=== PATIENT | male | born 1995 | race Caucasian/White ===

== ENCOUNTER 2017-05-09 20:44 | Emergency (ER) | payer OTHER, SELFPAY ==
[2017-05-09 20:58] VITALS: BP 125/80; PULSE 86; RESP 20; TEMP 38.2; O2SAT 97; BMI 19.9
--- NOTE | 2017-05-09 21:00 | HMH.EDUTC ---
[facility] [place] Clinical Impression: Viral upper respiratory illness Disposition: Home, Self-Care Condition on Discharge: Good Instructions: DI for Viral Upper Respiratory Infection -- Adult Additional Instructions: * Monitor Temp. Tylenol and/or Ibuprofen as needed. ER if fever is no less than 101 despite alternating Tylenol and Ibuprofen * Encourage fluids, water, Gatorade, powerade, pedialyte if infant/toddler/or child * Warm salt water gargles for throat irritation *Warm fluids *Sore throat lozenges *Sleep elevated *humidifier or vaporizer Lots of rest Increase fluids, water, Gatorade, powerade *Flonase 2 sprays each nostril daily but may take 2-3 days to notice improvement with it *Bromfed may cause drowsiness. Know how it effect you or your child. Before driving, caring for small children or sending your child to school Follow up IMMEDIATELY for new or worsening of symptoms OR no noticeable improvement over the next 48-72 hours. 911 immediately for any life threatening symptoms such as chest pain or difficulty breathing Prescriptions: Dextromethorphan Polistirex [Delsym] 10 ml PO Q12H PRN #200 britt.[email or web address] PRN Reason: Cough Referrals: Aniceto lEena MD [Primary Care Provider] - Forms: Work/School Release Time of Disposition: 21:11 Medical Decision Making - Medical Records Medical records reviewed: Yes: I reviewed the patient's medical records. Vital Signs: 05/09/17 20:58 05/09/17 21:08 Temperature 100.8 F H Temperature Source Temporal Artery Scan Pulse Rate [Right Brachial] 86 Respiratory Rate 20 Blood Pressure [Right Arm] 125/80 Blood Pressure Mean [Right Arm] 95 Blood Pressure Source [Right Arm] Automatic Cuff Blood Pressure Position [Right Arm] Sitting 02 Sat by Pulse Oximetry 97 Oxygen Delivery Method Room Air Room Air - Jameel Inquiry Pt receiving controlled substance: No Jameel was queried for this patient: No [facility] [place] - General Stated complaint: cough,body pain Mode of Arrival: Family Vehicle Source of Information: Patient Limitations: No Limitations Description of Symptoms (Recalled from Triage Doc. by RN): BODY ACHES, COUGH, CHILLS. HEENT Symptoms (Recalled from RN notes): No Resp Symptoms (Recalled from RN notes): Yes (COUGH) Skin Symptoms (Recalled from RN notes): No MS Symptoms (Recalled from RN notes): No Functional Status (Recalled from RN notes): NA - History of Present Illness Provider Complaint: Patient state that he has recently been exposed to the flu State that he has been running a fever, stuffy nose, cough and congestion that has continued to get worse as the day went on State that he is having body aches and feels like he has a fever right now - Related Data Previous Rx's Medication Instructions Recorded Dextromethorphan Polistirex 10 ml PO Q12H PRN #200 britt.[email or web address] 05/09/17 [Delsym] Allergies Allergy/AdvReac Type Severity Reaction Status Date / Time brompheniramine Allergy Unknown Verified 05/09/17 21:00 [From DIMETAPP COLD-ALLERGY (PE)] phenylephrine Allergy Unknown Verified 05/09/17 21:00 [From DIMETAPP COLD-ALLERGY (PE)] - Worker's Comp Is this a Worker's Comp case?: No [facility] History I have reviewed the patient's past medical history: Yes Amputation: No Fractures: No - *Social History Smoking Status: Current every day smoker Tobacco Type: cigarettes Alcohol Intake: never - Psychiatric History Expresses thoughts of harming self/others: None Suicide Plan Description: No Plan ROS Obtained: Yes All systems reviewed & no additional complaints Physical Exam - General General appearance: alert, in no apparent distress - Expanded ENT Exam Comment: throat red, irritated no exudate - Respiratory Respiratory exam: Present: normal lung sounds bilaterally. Absent: respiratory distress - Cardiovascular Cardiovascular exam: Present: regular rate, normal rhythm. Absent: JVD - Back Exam Matthias
--- NOTE | 2017-05-09 21:08 | ED_ITS ---
[facility] – [place] Disposition Clinical Impression: Viral upper respiratory illness Disposition: Home, Self-Care Condition on Discharge: Good Instructions: DI for Viral Upper Respiratory Infection -- Adult Additional Instructions: * Monitor Temp. Tylenol and/or Ibuprofen as needed. ER if fever is no less than 101 despite alternating Tylenol and Ibuprofen * Encourage fluids, water, Gatorade, powerade, pedialyte if infant/toddler/or child * Warm salt water gargles for throat irritation *Warm fluids *Sore throat lozenges *Sleep elevated *humidifier or vaporizer Lots of rest Increase fluids, water, Gatorade, powerade *Flonase 2 sprays each nostril daily but may take 2-3 days to notice improvement with it *Bromfed may cause drowsiness. Know how it effect you or your child. Before driving, caring for small children or sending your child to school Follow up IMMEDIATELY for new or worsening of symptoms OR no noticeable improvement over the next 48-72 hours. 911 immediately for any life threatening symptoms such as chest pain or difficulty breathing Prescriptions: Dextromethorphan Polistirex [Delsym] 10 ml PO Q12H PRN #200 britt.er.12h PRN Reason: Cough Referrals: Aniceto Elena MD [Primary Care Provider] - Forms: Work/School Release Time of Disposition: 21:11 Medical Decision Making - Medical Records Medical records reviewed: Yes: I reviewed the patient's medical records. Vital Signs: 05/09/17 20:58 05/09/17 21:08 Temperature 100.8 F H Temperature Source Temporal Artery Scan Pulse Rate [Right Brachial] 86 Respiratory Rate 20 Blood Pressure [Right Arm] 125/80 Blood Pressure Mean [Right Arm] 95 Blood Pressure Source [Right Arm] Automatic Cuff Blood Pressure Position [Right Arm] Sitting 02 Sat by Pulse Oximetry 97 Oxygen Delivery Method Room Air Room Air - Jameel Inquiry Pt receiving controlled substance: No Jameel was queried for this patient: No [facility] [place] HPI - General Stated complaint: cough,body pain Mode of Arrival: Family Vehicle Source of Information: Patient Limitations: No Limitations Description of Symptoms (Recalled from Triage Doc. by RN): BODY ACHES, COUGH, CHILLS. HEENT Symptoms (Recalled from RN notes): No Resp Symptoms (Recalled from RN notes): Yes (COUGH) Skin Symptoms (Recalled from RN notes): No MS Symptoms (Recalled from RN notes): No Functional Status (Recalled from RN notes): NA - History of Present Illness Provider Complaint: Patient state that he has recently been exposed to the flu State that he has been running a fever, stuffy nose, cough and congestion that has continued to get worse as the day went on State that he is having body aches and feels like he has a fever right now - Related Data Previous Rx's Medication Instructions Recorded Dextromethorphan Polistirex 10 ml PO Q12H PRN #200 britt.er.12h 05/09/17 [Delsym] Allergies Allergy/AdvReac Type Severity Reaction Status Date / Time brompheniramine Allergy Unknown Verified 05/09/17 21:00 [From DIMETAPP COLD-ALLERGY (PE)] phenylephrine Allergy Unknown Verified 05/09/17 21:00 [From DIMETAPP COLD-ALLERGY (PE)] - Worker's Comp Is this a Worker's Comp case?: No [facility] History I have reviewed the patient's past medical history: Yes Amputation: No Fractures: No - *Social History Smoki
== END 2017-05-09 21:15 | disposition home or self-care (01) ==
PROVIDERS: Emergency Provider Nurse Practitioner; Family Provider Emergency Medicine; PCP Emergency Medicine
DX: J06.9 Acute upper respiratory infection, unspecified (principal); F17.210 Nicotine dependence, cigarettes, uncomplicated
CPT/HCPCS: 99201

== ENCOUNTER 2017-05-16 11:27 | Emergency (ER) | payer OTHER, SELFPAY ==
[2017-05-16 11:45] VITALS: BP 121/82; PULSE 58; RESP 20; TEMP 36.7; O2SAT 98; BMI 20.7
[2017-05-16 11:49] LABS: UTC Strep Screen (Rapid) Negative (Negative)
--- NOTE | 2017-05-16 12:14 | HMH.EDUTC ---
[facility] – [place] Disposition Clinical Impression: Dysfunction of left eustachian tube Pharyngitis Qualifiers: Pharyngitis/tonsillitis etiology: unspecified etiology Qualified Code(s): J02.9 - Acute pharyngitis, unspecified Disposition: Home, Self-Care Condition on Discharge: Good Instructions: DI for Viral Pharyngitis, DI for Eustachian Tube Dysfunction-Adult Additional Instructions: * No sign of bacterial infection. Likely viral. Virus can take 7-14 days to run their course so you should continue to keep getting better. * Monitor Temp. FU if fever develops * Encourage fluids, water, gatorade, powerade, pedialyte if infant/toddler/child * warm salt water gargles * warm fluids * sore throat lozenges * sleep elevated * humidifier/vaporizer * flonase 2 sprays each nostril daily but may take 2-3 days to notice improvement with it. * * Your throat swab was sent for culture. Those results are typically sent to your primary care. Be sure to follow up in 2-3 days if no improvement so they can review those results and treat if necessary. If you don't have primary care, I recommend you get one but in the mean time, you will have to return to a walk in clinic. Follow up IMMEDIATELY for new or worsening symptoms OR no noticeable improvement over the next 48-72 hours. 911 for difficulty breathing or swallowing. Referrals: Aniceto Elena MD [Primary Care Provider] - ( Follow up IMMEDIATELY for new or worsening symptoms OR no noticeable improvement over the next 48-72 hours. 911 for difficulty breathing or swallowing.) Time of Disposition: 12:23 Medical Decision Making Vital Signs: 05/16/17 11:45 Temperature 98.1 F Temperature Source Temporal Artery Scan Pulse Rate [Brachial] 58 L Respiratory Rate 20 Blood Pressure [Right Arm] 121/82 Blood Pressure Mean [Right Arm] 95 Blood Pressure Source [Right Arm] Automatic Cuff Blood Pressure Position [Right Arm] Sitting 02 Sat by Pulse Oximetry 98 Oxygen Delivery Method Room Air - Lab Data Lab results reviewed: Yes: I reviewed the patient's lab results. Lab Results 05/16/17 11:37: Strep Scn Rapid Clinic Negative Orders (Tests/Meds): ORDERS Category Date Time Status Strep Screen Confirmation Stat Micro 05/16/17 11:37 Received - Jameel Inquiry Pt receiving controlled substance: No [facility] [place] HPI - General Stated complaint: sore throat Time Seen by Provider: 05/16/17 12:00 Mode of Arrival: Ambulatory Source of Information: Patient Limitations: No Limitations Description of Symptoms (Recalled from Triage Doc. by RN): WANTS TO BE TESTED FOR STREP HEENT Symptoms (Recalled from RN notes): Yes Resp Symptoms (Recalled from RN notes): Yes Skin Symptoms (Recalled from RN notes): No MS Symptoms (Recalled from RN notes): No Functional Status (Recalled from RN notes): NA - History of Present Illness Provider Complaint: c/o brother just testing positive for strep, wants strep test. Flu like illness started one week ago. Was seen that evening in [facility]. Flu neg. Dx JOSIAH. Theraflu helping. Feels slowly improving but now that brother has strep, wants to rule out strep. - Related Data Previous Rx's Medication Instructions Recorded Dextromethorphan Polistirex 10 ml PO Q12H PRN #200 britt.er.12h 05/09/17 [Delsym] Allergies Allergy/AdvReac Type Severity Reaction Status Date / Time brompheniramine Allergy Unknown Verified 05/09/17 21:00 [From DIMETAPP COLD-ALLERGY (PE)] phenylephrine Allergy Unknown Verified 05/09/17 21:00 [From DIMETAPP COLD-ALLERGY (PE)] - Worker's Comp Is this a Worker's Comp case?: No [facility] History I have reviewed the patient's past medical history: Yes (denies PMHx) Other Surgeries: Yes: Appendectomy Amputation: No Fractures: No - *Social History Smoking Status: Current every day smoker Tobacco Type: cigarettes Alcohol Intake: never - Psychiatric History Expresses thoughts of harming self/others: None Rashmi
== END 2017-05-16 12:25 | disposition home or self-care (01) ==
PROVIDERS: Emergency Provider Nurse Practitioner Family; Family Provider Emergency Medicine; PCP Emergency Medicine
DX: H69.82 Other specified disorders of Eustachian tube, left ear (principal); J20.9 Acute bronchitis, unspecified
CPT/HCPCS: 87880; 99202

== ENCOUNTER → 2019-06-07 09:35 | Outpatient (CLI) | payer OTHER, SELFPAY ==
--- NOTE | 2019-06-07 09:50 | XR_ITS ---
PROCEDURE: XR CERVICAL SPINE 5V CLINICAL INDICATION: shoulder pain Right arm pain tingling and numbness, right-sided neck pain COMPARISON: No exams were available for comparison FINDINGS: There is good alignment. There is 2 mm anterolisthesis of C4 on C5 which may be physiologic. No fracture or dislocation. No lytic or blastic change. The foramina are widely patent. No evidence of cervical rib or other significant anomaly. IMPRESSION: Negative cervical spine Dictated by: Hosea Velazco MD 06/07/2019 12:57 Electronically signed by Hosea Velazco MD in [place] 06/07/2019 12:57
== END ==
PROVIDERS: PCP Emergency Medicine; Visit Provider Orthopaedic Surgery
DX: M25.511 Pain in right shoulder (principal)
CPT/HCPCS: 72050

== ENCOUNTER 2020-01-02 20:07 | Emergency (ER) | payer MEDICAID, SELFPAY ==
[2020-01-02 20:10] VITALS: BP 134/86; PULSE 75; RESP 16; TEMP 37.1; O2SAT 100; BMI 28.0
--- NOTE | 2020-01-02 20:30 | CT_ITS ---
PROCEDURE: CT HEAD/BRAIN WO CON CLINICAL INDICATION: weakness, dropping things, no focal findings Headache, dizziness COMPARISON: CT CT HEAD/BRAIN WO CON from 02/10/2019 TECHNIQUE: Axial images obtained. All CT scans at the facility use one or more dose reduction, viz: automated exposure control, ma/kV adjustment per patient size (including targeted exams where dose is matched to indication, i.e. head), or iterative reconstruction technique. FINDINGS: No midline shift, mass effect, intracranial hemorrhage, hydrocephalus, or extra-axial fluid collection is evident. The calvarium has an unremarkable appearance. No mastoid effusion. No sinus air-fluid level. IMPRESSION: No acute intracranial finding Dictated by: Hosea Velazco MD 01/03/2020 06:43 Hosea Velazco MD in [place] 01/03/2020 06:43
--- NOTE | 2020-01-02 20:34 | ECG_ITS ---
APPROVED REPORT Exam: Resting ECG HR:72 bpm ECG Measurements Heart Rate 72 AXES NV 134 P 38 QRSd 100 QRS 107 QT 366 T -30 QTc 400 <Conclusion> Normal sinus rhythm with sinus arrhythmia Rightward axis Cannot rule out Inferior infarct, age undetermined Abnormal ECG Electronically signed by : Erasmo Anderson, 01/06/2020 15:05:25
--- NOTE | 2020-01-02 20:35 | HMH.EDGENADL ---
ED Disposition Clinical Impression: Dizziness of unknown cause Disposition: Home, Self-Care Condition on Discharge: Fair Instructions: Dizziness, Nonvertigo Additional Instructions: Reviewed Labs and imaging and no acute findings are noted; specifically CT head shows no acute findings; vital signs are stable; plan is to discharge you home; Please follow-up with your primary care doctor. Referrals: Aniceto Elena MD [Primary Care Provider] - Forms: Work/School Release Time of Disposition: 22:13 - Critical Care Critical Care Time: No Attestation: On 01/02/20, the high probability of a clinically significant, sudden or life threatening deterioration of the following system(s) required my full and direct attention, intervention and personal management. The time I documented below is in addition to time spent performing reported procedures but includes the following listed in this critical care notation. Medical Decision Making - Medical Records Medical records reviewed: Yes: I reviewed the patient's medical records. MR Comment: 24 year old male with non specific complaints of feeling dizzy and dropping things. No focal complaints, awake alert in no specific distress, has had a negative Covid 19 test about a month ago. Reviewed Labs and imaging and no acute findings are noted; specifically CT head shows no acute findings; vital signs are stable patient is himself in stable condition normal findings; plan is to discharge him home and advised him follow-up with his primary care doctor which is Dr. Elena will keep him off work for the next few days advised him to follow-up in case of recurrence of symptoms - Jameel Inquiry Pt receiving controlled substance: No Vital Signs: 01/02/20 20:10 01/02/20 21:21 01/02/20 21:47 Temperature 98.7 F Temperature Source Oral Pulse Rate [Right Radial] 75 63 60 Respiratory Rate 16 18 18 Blood Pressure [Right Arm] 134/86 134/74 120/72 Blood Pressure Mean [Right Arm] 102 94 88 Blood Pressure Source [Right Arm] Automatic Cuff Blood Pressure Position [Right Arm] Supine 02 Sat by Pulse Oximetry 100 98 99 Oxygen Delivery Method Room Air Room Air - Lab Data Lab results reviewed: Yes: I reviewed the patient's lab results. Lab Results 01/02/20 20:46: TSH 3.66 01/02/20 20:46: WBC 8.3, RBC 5.46, Hgb 17.3, Hct 47.9, MCV 87.7, MCH 31.7 H, MCHC 36.1 H, RDW 12.3, Plt Count 324, MPV 7.2 L, Neut % (Auto) 64.0, Lymph % (Auto) 27.3, [place] % (Auto) 6.3, Eos % (Auto) 1.7, Baso % (Auto) 0.8, Neut # (Auto) 5.3, Lymph # (Auto) 2.3, [place] # (Auto) 0.5, Eos # (Auto) 0.1, Baso # (Auto) 0.1 01/02/20 20:46: Sodium 141, Potassium 4.2, Chloride 99, Carbon Dioxide 31 H, Anion Gap 15.2 H, BUN 13, Creatinine 1.00, Estimated Creat Clear 139, Estimated GFR 92, Est GFR ( Amer) 111, Glucose 109 H, Calcium 10.4 H, Total Bilirubin 0.5, AST 33, ALT 36, Alkaline Phosphatase 89, Troponin I < 0.01, Total Protein 8.4 H, Albumin 5.0, Globulin 3.4 H, Albumin/Globulin Ratio 1.5 Result diagrams: 01/02/20 20:46 01/02/20 20:46 Orders (Tests/Meds): ORDERS Category Date Time Status CT head/brain wo con Stat Cat Scan 01/02/20 20:30 Taken Drug Screen,Urine Stat Lab 01/02/20 20:33 Ordered Troponin I Q3H Lab 01/02/20 23:45 Ordered Troponin I Q3H Lab 01/03/20 02:45 Ordered Urinalysis and Microscopic Stat Lab 01/02/20 20:30 Ordered EKG Request [ECG Request by /Aj] Stat Y 01/02/20 20:34 Ordered General Adult HPI - General Chief complaint: Dizziness Stated complaint: SOB,Vomiting,CP,dizzy Time Seen by Provider: 01/02/20 20:28 Mode of Arrival: Ambulatory Source of Information: Patient Limitations: No Limitations - History of Present Illness HPI narrative: 24 year old male with non specific complaints of feeling dizzy and dropping things. No focal complaints, awake alert in no specific distress. Onset (ago): day(s) Location: head Radiation: non-radiation Severity: mil
[2020-01-02 20:53] LABS: Basophils # 0.1 K/mm3 (0-0.2); Basophils % 0.8 % (0.1-2.0); Eosinophils # 0.1 K/mm3 (0.0-0.4); Eosinophils % 1.7 % (0.1-12.0); Hematocrit 47.9 % (42.0-52.0); Hemoglobin 17.3 g/dL (14.1-18.0); Lymphocytes # 2.3 K/mm3 (0.7-4.5); Lymphocytes % 27.3 % (10-50); Mean Corpuscular HGB Conc 36.1 g/dL (31.8-35.4); Mean Corpuscular Hemoglobin 31.7 pg (27.0-31.2); Mean Corpuscular Volume 87.7 fl (80-94); Mean Platelet Volume 7.2 fl (7.4-10.4); Monocytes # 0.5 K/mm3 (0.1-1.0); Monocytes % 6.3 % (1.7-9.3); Neutrophils # 5.3 K/mm3 (1.8-7.8); Platelet Count 324 K/mm3 (142-424); Red Blood Count 5.46 M/mm3 (4.60-6.20); Red Cell Distribution Width 12.3 % (11.5-17.5); White Blood Count 8.3 K/mm3 (4.8-10.8)
[2020-01-02 21:01] LABS: Chloride 99 mmol/L (98-107); Potassium 4.2 mmoL/L (3.5-5.1); Sodium 141 mmol/L (136-145)
[2020-01-02 21:03] LABS: Blood Urea Nitrogen 13 mg/dl (9-20); Creatinine Clearance Estimated 139 mL/min (50-200); Estimated Glomerular Filt Rate 92 ml/min (>60); GFR (African American) 111 ML/MIN (>60)
[2020-01-02 21:04] LABS: Alanine Aminotransferase 36 U/L (12-78); Albumin/Globulin Ratio 1.5 (1.1-1.8); Alkaline Phosphatase 89 U/L (38-126); Anion Gap 15.2 mEq/L (5-15); Aspartate Amino Transferase 33 U/L (17-59); Bilirubin,Total 0.5 mg/dl (0.2-1.3); Calcium 10.4 mg/dl (8.4-10.2); Carbon Dioxide 31 mmol/L (22.0-30.0); Globulin 3.4 g/dL (1.3-3.2); Glucose 109 mg/dl (74-100); Total Protein,Serum 8.4 g/dl (6.3-8.2)
[2020-01-02 21:19] LABS: Troponin I < 0.01 ng/ml (0.00-0.034)
[2020-01-02 21:21] VITALS: BP 134/74; PULSE 63; RESP 18; O2SAT 98
[2020-01-02 21:35] LABS: Thyroid Stimulating Hormone 3.66 uIU/mL (0.465-4.68)
[2020-01-02 21:47] VITALS: BP 120/72; PULSE 60; RESP 18; O2SAT 99
[2020-01-02 22:09] VITALS: BP 132/81; PULSE 61; RESP 18; O2SAT 98
[2020-01-02 22:18] LABS: Microscopic, Urine URINE MICROSCOPIC (MICROSCOPIC)
[2020-01-02 22:24] LABS: Appearance,Urine CLEAR (Clear); Bilirubin,Urine Negative (Negative); Blood, Urine Negative (Negative); Color,Urine YELLOW (Yellow); Glucose,Urine (UA) Negative (Negative); Ketones,Urine Negative (Negative); Leukocyte Esterase,Urine Negative (Negative); Nitrate,Urine Negative (Negative); PH,Urine 6.5 (5.0-8.5); Protein,Urine Negative (Negative); Specific Gravity, Urine 1.025 (1.005-1.030)
[2020-01-02 22:29] LABS: Bacteria,Urine Trace /lpf; Mucus,Urine 1+ /lpf; WBC,Urine Occasional #/hpf (0-3)
[2020-01-02 22:37] LABS: Barbiturates Screen,Urine Negative ng/ml (<200); Benzodiazepines Screen,Urine Negative ng/ml (<200)
[2020-01-02 22:38] LABS: Amphetamine/Metha Screen,Urine Negative ng/ml (<1000)
[2020-01-02 22:39] LABS: Cannabinoid Screen,Urine Negative ng/ml (<50); Methadone Screen,Urine Negative ng/ml (<300)
[2020-01-02 22:40] LABS: Cocaine Screen,Urine Negative ng/ml (<300)
[2020-01-02 22:41] LABS: Opiate Screen,Urine Negative ng/ml (<300); Phencyclidine Screen,Urine Negative ng/ml (<25)
[2020-01-02 22:53] VITALS: BP 132/89; PULSE 65; RESP 18; TEMP 37.1; O2SAT 98
== END 2020-01-02 22:58 | disposition home or self-care (01) ==
PROVIDERS: Emergency Provider Emergency Medicine; PCP Emergency Medicine
DX: R42 Dizziness and giddiness (principal); R06.02 Shortness of breath; G43.709 Chronic migraine without aura, not intractable, without status migrainosus; F17.210 Nicotine dependence, cigarettes, uncomplicated
CPT/HCPCS: 70450; 80053; 80305; 81001; 84443; 84484; 85025; 99284

== ENCOUNTER 2020-04-17 04:06 | Emergency (ER) | payer BC, SELFPAY ==
[2020-04-17 04:10] VITALS: BP 141/92; PULSE 97; RESP 16; TEMP 37; O2SAT 97; BMI 29.5
--- NOTE | 2020-04-17 04:25 | XR_ITS ---
PROCEDURE: XR CHEST 2V CLINICAL HISTORY: soa Shortness of air, cough COMPARISON: CR CXR CHEST(2 VIEWS-NOT PORTABLE) from 05/09/[address] angio chest from 05/17/2018 CR CXR2V XR chest 2V from 05/17/2018 FINDINGS: The cardiomediastinal silhouette and pulmonary vascularity are within normal limits. The lungs are clear without infiltrates, suspicious nodules, or pleural effusions. No acute bony abnormalities. IMPRESSION: No acute findings. Dictated by: Hosea Velazco MD 04/17/2020 07:11 Hosea Velazco MD in [place] 04/17/2020 07:11
[2020-04-17 04:55] LABS: Basophils % 0.6 % (0.1-2.0); Eosinophils # 0.1 K/mm3 (0.0-0.4); Eosinophils % 1.3 % (0.1-12.0); Hematocrit 46.7 % (42.0-52.0); Hemoglobin 16.8 g/dL (14.1-18.0); Lymphocytes # 2.2 K/mm3 (0.7-4.5); Lymphocytes % 40.2 % (10-50); Mean Corpuscular HGB Conc 36.1 g/dL (31.8-35.4); Mean Corpuscular Hemoglobin 31.7 pg (27.0-31.2); Mean Corpuscular Volume 87.8 fl (80-94); Mean Platelet Volume 7.6 fl (7.4-10.4); Monocytes # 0.5 K/mm3 (0.1-1.0); Neutrophils # 2.7 K/mm3 (1.8-7.8); Neutrophils % 48.8 % (37.0-80.0); Platelet Count 247 K/mm3 (142-424); Red Blood Count 5.31 M/mm3 (4.60-6.20); Red Cell Distribution Width 12.6 % (11.5-17.5); White Blood Count 5.5 K/mm3 (4.8-10.8)
[2020-04-17 04:57] LABS: Alanine Aminotransferase 101 U/L (12-78); Albumin Level 4.8 g/dl (3.5-5.0); Albumin/Globulin Ratio 1.4 (1.1-1.8); Alkaline Phosphatase 84 U/L (38-126); Anion Gap 13.5 mEq/L (5-15); Aspartate Amino Transferase 48 U/L (17-59); Bilirubin,Total 0.7 mg/dl (0.2-1.3); Blood Urea Nitrogen 12 mg/dl (9-20); Calcium 9.7 mg/dl (8.4-10.2); Carbon Dioxide 30 mmol/L (22.0-30.0); Chloride 97 mmol/L (98-107); Creatinine Clearance Estimated 146 mL/min (50-200); Estimated Glomerular Filt Rate 92 ml/min (>60); GFR (African American) 111 ML/MIN (>60); Globulin 3.5 g/dL (1.3-3.2); Glucose 107 mg/dl (74-100); Potassium 3.5 mmoL/L (3.5-5.1); Sodium 137 mmol/L (136-145); Total Protein,Serum 8.3 g/dl (6.3-8.2)
[2020-04-17 05:00] VITALS: BP 127/71; PULSE 82; O2SAT 98
[2020-04-17 05:02] LABS: C-Reactive Protein 1.1 mg/L (0-4)
[2020-04-17 05:16] LABS: Procalcitonin 0.053 ng/mL (0.0-2.0)
[2020-04-17 05:30] VITALS: BP 114/68; PULSE 75; O2SAT 98
[2020-04-17 06:00] LABS: Coronavirus 19 IgG Antibody Negative (Negative); Coronavirus 19 IgM Antibody Negative (Negative)
[2020-04-17 06:01] LABS: Erythrocyte Sedimentation Rate 14 mm/hr (0-15)
--- NOTE | 2020-04-17 06:09 | HMH.EDSOB ---
ED Disposition Clinical Impression: Viral upper respiratory illness, Exposure to COVID-19 virus Disposition: Home, Self-Care Condition on Discharge: Good Instructions: DI for Shortness of Breath Additional Instructions: quarantine till results and use vitamins c and and zinc and recheck if needed Referrals: Aniceto Elena MD [Primary Care Provider] - - Critical Care Critical Care Time: No Attestation: On 04/17/20, the high probability of a clinically significant, sudden or life threatening deterioration of the following system(s) required my full and direct attention, intervention and personal management. The time I documented below is in addition to time spent performing reported procedures but includes the following listed in this critical care notation. Medical Decision Making - Medical Records Medical records reviewed: Yes: I reviewed the patient's medical records. - Jameel Inquiry Pt receiving controlled substance: No Vital Signs: 04/17/20 04:10 04/17/20 05:00 04/17/20 05:30 Temperature 98.6 F Temperature Source Oral Pulse Rate [Right Brachial] 97 H 82 75 Respiratory Rate 16 Blood Pressure [Right Arm] 141/92 H 127/71 114/68 Blood Pressure Mean [Right Arm] 108 89 83 Blood Pressure Source [Right Arm] Automatic Cuff Automatic Cuff Blood Pressure Position [Right Arm] Supine Supine 02 Sat by Pulse Oximetry 97 98 98 Oxygen Delivery Method Room Air Room Air - Lab Data Lab results reviewed: Yes: I reviewed the patient's lab results. Lab Results 04/17/20 04:36: WBC 5.5, RBC 5.31, Hgb 16.8, Hct 46.7, MCV 87.8, MCH 31.7 H, MCHC 36.1 H, RDW 12.6, Plt Count 247, MPV 7.6, Neut % (Auto) 48.8, Lymph % (Auto) 40.2, [place] % (Auto) 9.0, Eos % (Auto) 1.3, Baso % (Auto) 0.6, Neut # (Auto) 2.7, Lymph # (Auto) 2.2, [place] # (Auto) 0.5, Eos # (Auto) 0.1, Baso # (Auto) 0.0, ESR 14 04/17/20 04:36: Sodium 137, Potassium 3.5, Chloride 97 L, Carbon Dioxide 30, Anion Gap 13.5, BUN 12, Creatinine 1.00, Estimated Creat Clear 146, Estimated GFR 92, Est GFR ( Amer) 111, Glucose 107 H, Calcium 9.7, Total Bilirubin 0.7, AST 48, ALT 101 H, Alkaline Phosphatase 84, C-Reactive Protein 1.1, Total Protein 8.3 H, Albumin 4.8, Globulin 3.5 H, Albumin/Globulin Ratio 1.4, Procalcitonin 0.053 04/17/20 04:36: Influenza Type A Ag Negative, Influenza Type B Ag Negative 04/17/20 04:36: SARS-CoV-2 IgG Ab (Rapid) Negative, SARS-CoV-2 IgM Ab (Rapid) Negative Result diagrams: 04/17/20 04:36 04/17/20 04:36 Orders (Tests/Meds): ED MEDICATIONS Generic Name Dose Route Start Last Admin Trade Name Freq PRN Reason Stop Dose Admin Sodium Chloride 1,000 mls @ 999 mls/hr 04/17/20 04:30 04/17/20 04:33 Sod Chlor 0.9% 1000ml Bag IV 04/17/20 05:30 999 mls/hr .Q1H1M BESS Administration Discontinued Medications Generic Name Dose Route Start Last Admin Trade Name Freq PRN Reason Stop Dose Admin Dexamethasone Sodium Phosphate 10 mg 04/17/20 04:29 04/17/20 04:33 Dexamethasone 4mg/Ml 1ml Vial IV 04/17/20 04:30 10 mg ONCE ONE Administration ORDERS Category Date Time Status Chest XR 2 view (NOT portable) [XR chest 2V] Stat Exams 04/17/20 04:25 Taken Covid-19 Nasal PCR Sendout P&C Stat Lab 04/17/20 04:36 Received - Radiology Data #1 Image(s): Chest Image Reviewed: Yes I reviewed the patient's radiology image Preliminary Findings: Normal/NAD (nonspecific ) Resp/SOB HPI - General Chief Complaint: Shortness of Breath/Dyspnea Stated Complaint: Dizziness,cough,SOB,lost of taste & smell Time Seen by Provider: 04/17/20 05:00 Mode of Arrival: Ambulatory Source of Information: Patient, Medical Record Limitations: No Limitations Description of Symptoms (Recalled from ER Triage Doc. by RN): pt c/o of SOA, loss of taste, smell, fever, weakness, body aches starting on tuesday and not getting any better. - History of Present Illness work place exposure with uri sx and loss of smell - has been te
[2020-04-17 06:29] VITALS: BP 121/72; PULSE 71; RESP 16; TEMP 36.9; O2SAT 98
--- NOTE | 2020-04-19 12:35 | PC.NURSE ---
Patient notified of positive COVID results. Educated on quarantine.
== END 2020-04-17 06:31 | disposition home or self-care (01) ==
PROVIDERS: Emergency Provider Emergency Medicine; PCP Emergency Medicine
DX: U07.1 COVID-19 (principal); Z01.84 Encounter for antibody response examination; G43.909 Migraine, unspecified, not intractable, without status migrainosus
CPT/HCPCS: 71046; 80053; 84145; 85025; 85651; 86140; 86328; 87275; 87276; 96365; 96375; 99283; U0003; U0004

== ENCOUNTER 2020-07-15 20:36 | Emergency (ER) | payer BC, SELFPAY ==
[2020-07-15 20:47] VITALS: BP 145/91; PULSE 91; RESP 100; TEMP 36.6; O2SAT 99; BMI 29.9
--- NOTE | 2020-07-15 20:55 | HMH.EDUTC ---
[facility] [place] Disposition Clinical Impression: Sinusitis Qualifiers: Sinusitis location: unspecified location Chronicity: acute Recurrence: non-recurrent Qualified Code(s): J01.90 - Acute sinusitis, unspecified Disposition: Home, Self-Care Condition on Discharge: Good Instructions: DI for Sinusitis Additional Instructions: Drink plenty of fluids. Take tylenol or ibuprofen for pain or fever. Take the medications as directed. Follow up with your regular doctor. GO TO THE ER FOR ANY WORSENING SYMPTOMS Prescriptions: Ondansetron [Zofran 4mg ODT] 4 mg PO Q8HP PRN #12 tab.rapdis PRN Reason: Nausea Transmission Status: Received by [id number] Azithromycin [Z-Blayne 250mg Tab*] 250 mg PO UD DOSE PK #6 tab Transmission Status: Received by [id number] Referrals: Aniceto Elena MD [Primary Care Provider] - Forms: Work/School Release Time of Disposition: 20:57 Medical Decision Making - Medical Records Medical records reviewed: No: I reviewed the patient's medical records. - Jameel Inquiry Pt receiving controlled substance: No Vital Signs: 07/15/20 20:47 07/15/20 21:11 Temperature 98 F 98 F Temperature Source Tympanic Pulse Rate 0 L Pulse Rate [Right] 91 H Respiratory Rate 100 H 16 Blood Pressure 000/00 L Blood Pressure [Right Arm] 145/91 H Blood Pressure Mean [Right Arm] 109 Blood Pressure Source [Right Arm] Automatic Cuff Blood Pressure Position [Right Arm] Sitting 02 Sat by Pulse Oximetry 99 Orders (Tests/Meds): ED MEDICATIONS Discontinued Medications Generic Name Dose Route Start Last Admin Trade Name Freq PRN Reason Stop Dose Admin Ondansetron HCl 4 mg 07/15/20 20:55 07/15/20 20:55 Ondansetron 4mg Odt SL 07/15/20 20:56 4 mg ONCE ONE Administration [facility] [place] HPI - General Stated complaint: not feeling good, vomiting Time Seen by Provider: 07/15/20 20:55 Mode of Arrival: Ambulatory Source of Information: Patient Limitations: No Limitations Description of Symptoms (Recalled from Triage Doc. by RN): pt complains of vomitting twice today. no other symptoms. states he needs a work note. HEENT Symptoms (Recalled from RN notes): No Resp Symptoms (Recalled from RN notes): No Skin Symptoms (Recalled from RN notes): No MS Symptoms (Recalled from RN notes): No Functional Status (Recalled from RN notes): na - History of Present Illness Provider Complaint: He states that he has had sinus congestion for the past 3 days. He states that the drainage has caused him to be nauseated. He vomited x1 earlier this evening. He denies any abdominal pain. He doesn't think that he has covid-19 and he states that he doesn't need to be tested. - Related Data Previous Rx's Medication Instructions Recorded Azithromycin [Z-Blayne 250mg Tab*] 250 mg PO UD DOSE PK #6 tab 07/15/20 Ondansetron [Zofran 4mg ODT] 4 mg PO Q8HP PRN #12 tab.rapdis 07/15/20 Allergies Allergy/AdvReac Type Severity Reaction Status Date / Time brompheniramine Allergy Unknown Verified 07/15/20 20:52 [From DIMETAPP COLD-ALLERGY (PE)] phenylephrine Allergy Unknown Verified 07/15/20 20:52 [From DIMETAPP COLD-ALLERGY (PE)] - Worker's Comp Is this a Worker's Comp case?: No [facility] History - Hepatitis A Screen Drug use history?: No High risk sexual behaviors?: No History of sexually transmitted infection?: No Currently employed?: No Childcare worker?: No Do you have indoor plumbing?: Yes Do you have electricity?: Yes Attestation statement:: This patient has been screened for Hepatitis A risk factors. I have reviewed the patient's past medical history: Yes Medical History: Reports:: Depression, Migraine Denies:: Cancer, Diabetes Mellitus Type 1, Diabetes Mellitus Type 2, MRSA Other Surgeries: Yes: Appendectomy Amputation: No Fractures: No - Social History Smoking Status: Current every day smoker Tobacco Type: cigarettes # Packs/Day (cigarettes): 1 A
[2020-07-15 21:11] VITALS: BP 000/00; PULSE 0; RESP 16; TEMP 36.6
== END 2020-07-15 21:11 | disposition home or self-care (01) ==
PROVIDERS: Emergency Provider Nurse Practitioner Family; PCP Emergency Medicine
DX: J01.90 Acute sinusitis, unspecified (principal); F17.210 Nicotine dependence, cigarettes, uncomplicated
CPT/HCPCS: 99202; G0463

== ENCOUNTER 2020-09-10 16:37 | Emergency (ER) | payer BC, SELFPAY ==
[2020-09-10 17:10] VITALS: BP 130/80; PULSE 72; RESP 16; TEMP 36.8; O2SAT 98; BMI 25.8
[2020-09-10 17:18] LABS: Apearance,Urine Clear (Clear); Color,Urine Yellow (Yellow)
[2020-09-10 17:19] LABS: Bilirubin,Urine Negative (Negative); Blood, Urine Negative (Negative); Glucose,Urine (UA) Negative (Negative); Ketones,Urine Negative (Negative); PH,Urine 5.5 (5.0-8.5); Protein,Urine Negative (Negative); Specific Gravity, Urine 1.025 (1.005-1.030); UTC Leukocyte Esterase,Urine Negative (Negative); UTC Nitrate,Urine Negative (Negative); Urobilinogen,Urine 0.2 EU/dl (0.2)
--- NOTE | 2020-09-10 17:38 | HMH.EDUTC ---
[facility] [place] Clinical Impression: Low back pain Qualifiers: Chronicity: unspecified Back pain laterality: right Sciatica presence: without sciatica Qualified Code(s): M54.5 - Low back pain Disposition: Home, Self-Care Condition on Discharge: Good Instructions: Low Back Pain (Alternative Therapy), Hemorrhoids, DI for Muscle Spasm Additional Instructions: Make sure that you are drinking plenty of water and getting adequate fiber in your diet *If you have anymore blood on the tissue make sure to follow up with your Family Doctor Return if needed Straight to ER if any life threatening symptoms *Ibuprofen carmella 6 hours with meal as needed for pain/inflammation *Not additional anti-inflammatory like motrin, aleve, advil with the above amount of ibuprofen. You can still take Tylenol every 4 hours as needed if you need something else for pain *Ice 20 minutes every 2 hours for the first 48 hours after the initial injury followed by moist heat every 20 minutes 3-4 times a day to affected area *Muscle relaxer every 8 hours as needed for muscle spasms but remember, it WILL cause drowsiness You cannot take it and drive, operate machinery or care for small children. *Keep this area active, no movement leads to more stiffness, However take it easy and avoid heavy lifting pushing or pulling *Follow up with you family doctor if no improvement for further treatment Prescriptions: methocarbamoL [Methocarbamol 500mg Tablet] 500 mg PO BID PRN #10 tab PRN Reason: Muscle Spasm Transmission Status: Received by [id number] Naproxen [Naproxen 500mg tab] 500 mg PO BID PRN #10 tab PRN Reason: Moderate Pain Transmission Status: Received by [id number] Referrals: Aniceto Elena MD [Primary Care Provider] - As needed Forms: Work/School Release Time of Disposition: 17:48 Medical Decision Making - Jameel Inquiry Pt receiving controlled substance: No Jameel was queried for this patient: No Vital Signs: 09/10/20 17:10 09/10/20 17:51 Temperature 98.2 F 98.2 F Temperature Source Oral Pulse Rate 72 Pulse Rate [Right Brachial] 72 Respiratory Rate 16 16 Blood Pressure 130/80 Blood Pressure [Right Arm] 130/80 Blood Pressure Mean [Right Arm] 96 Blood Pressure Source [Right Arm] Automatic Cuff Blood Pressure Position [Right Arm] Sitting 02 Sat by Pulse Oximetry 98 Oxygen Delivery Method Room Air - Lab Data Lab Results 09/10/20 17:04: Urine Color Yellow, Urine Appearance Clear, Urine pH 5.5, Ur Specific [place] 1.025, Urine Protein Negative, Urine Glucose (UA) Negative, Urine Ketones Negative, Urine Blood Negative, Urine Nitrate Negative, Urine Bilirubin Negative, Urine Urobilinogen 0.2, Ur Leukocyte Esterase Negative Medical Decision Narrative: Patient external rectal area examined no external hemorrhoids noted Patient refused digital exam and guiac test States that he would see his PCP for that if he had it again Discussed and recommended transfer to the ED for further evaluation and patient declined that also [facility] [place] - General Stated complaint: pain in kidney area and blood in stool Time Seen by Provider: 09/10/20 17:38 Mode of Arrival: Ambulatory Source of Information: Patient Limitations: No Limitations Description of Symptoms (Recalled from Triage Doc. by RN): PATIENT C/O PAIN TO RIGHT LOWER SIDE/BACK X 2 DAYS. ALSO STATES AFTER STRAINING TO HAVE BM, HE HAD A SMALL AMOUNT OF BRIGHT RED BLOOD ON TISSUE. HEENT Symptoms (Recalled from RN notes): No Resp Symptoms (Recalled from RN notes): No Skin Symptoms (Recalled from RN notes): No MS Symptoms (Recalled from RN notes): No Functional Status (Recalled from RN notes): WNL - History of Present Illness Provider Complaint: Patient states that he has been having achy like feeling in his his right low back area State that feels like he may have pulled something in the right side of his lower back States that it is tender to the touch and feels like he
[2020-09-10 17:51] VITALS: BP 130/80; PULSE 72; RESP 16; TEMP 36.8; O2SAT 98
== END 2020-09-10 18:00 | disposition home or self-care (01) ==
PROVIDERS: Emergency Provider Nurse Practitioner; PCP Emergency Medicine
DX: M54.5 Low back pain (principal); K92.1 Melena; F33.1 Major depressive disorder, recurrent, moderate; Z79.899 Other long term (current) drug therapy
CPT/HCPCS: 81003; 99202; G0463

== ENCOUNTER 2021-10-09 22:33 | Emergency (ER) | payer SELFPAY ==
[2021-10-09 22:35] VITALS: BP 149/94; PULSE 81; RESP 16; TEMP 36.9; O2SAT 99; BMI 28.3
--- NOTE | 2021-10-09 23:05 | CT_ITS ---
PROCEDURE INFORMATION: Exam: CT Cervical Spine Without Contrast Exam date and time: 10/09/2021 11:21 PM Age: 26 years old Clinical indication: Injury or trauma; Other: Was loading a vehicle onto a trailer and heard neck pop; Sprain or strain, cervical ligaments TECHNIQUE: Imaging protocol: Computed tomography of the cervical spine without contrast. Radiation optimization: All CT scans at this facility use at least one of these dose optimization techniques: automated exposure control; mA and/or kV adjustment per patient size (includes targeted exams where dose is matched to clinical indication); or iterative reconstruction. COMPARISON: CR XR CERVICAL SPINE 5V 06/07/2019 9:57 AM FINDINGS: Bones/joints: No acute fracture. Normal alignment. Discs/Spinal canal/Neural foramina: No significant disc protrusion. No severe spinal canal stenosis. No significant neural foraminal narrowing. Lungs: Lung apices are normal. Soft tissues: Unremarkable. IMPRESSION: No acute findings.
--- NOTE | 2021-10-09 23:05 | CT_ITS ---
PROCEDURE INFORMATION: Exam: CT Thoracic Spine Without Contrast Exam date and time: 10/09/2021 11:24 PM Age: 26 years old Clinical indication: Injury or trauma; Other: Loading a vehicle onto a trailer and heard neck and upper back pop; Sprain or strain TECHNIQUE: Imaging protocol: Computed tomography of the thoracic spine without contrast. Radiation optimization: All CT scans at this facility use at least one of these dose optimization techniques: automated exposure control; mA and/or kV adjustment per patient size (includes targeted exams where dose is matched to clinical indication); or iterative reconstruction. COMPARISON: CT CERVICAL SPINE WO CON 10/09/2021 11:21 PM FINDINGS: Bones/joints: No acute fracture. Normal alignment. Discs/Spinal canal/Neural foramina: No significant disc protrusion. No severe spinal canal stenosis. No significant neural foraminal narrowing. Soft tissues: Unremarkable. IMPRESSION: Unremarkable CT Spine.
--- NOTE | 2021-10-09 23:23 | PC.NURSE ---
Pt gone to RAD
--- NOTE | 2021-10-09 23:24 | PC.NURSE ---
pt to ct
--- NOTE | 2021-10-09 23:25 | HMH.EDNECK ---
ED Disposition Clinical Impression: Acute cervical myofascial strain Qualifiers: Encounter type: initial encounter Qualified Code(s): S16.1XXA - Strain of muscle, fascia and tendon at neck level, initial encounter Disposition: Home, Self-Care Condition on Discharge: Good Instructions: DI for Neck Pain Additional Instructions: alternate heat and ice x 24 hrs and use meds and see pcp next week as needed Prescriptions: predniSONE [Prednisone 20mg Tab] 20 mg PO BID #10 tab Transmission Status: Pending to [facility] Ketorolac Tromethamine [Toradol 10mg tablet] 10 mg PO Q6HP PRN #12 tab MDD 40mg/day PRN Reason: Moderate To Severe Pain Transmission Status: Pending to [facility] Referrals: Aniceto Elena MD [Primary Care Provider] - - Critical Care Critical Care Time: No Attestation: On 10/09/21, the high probability of a clinically significant, sudden or life threatening deterioration of the following system(s) required my full and direct attention, intervention and personal management. The time I documented below is in addition to time spent performing reported procedures but includes the following listed in this critical care notation. Medical Decision Making - Medical Records Medical records reviewed: Yes: I reviewed the patient's medical records. - Jameel Inquiry Pt receiving controlled substance: No Vital Signs: 10/09/21 22:35 Temperature 98.5 F Temperature Source Oral Pulse Rate [Left] 81 Respiratory Rate 16 Blood Pressure [Right Arm] 149/94 H Blood Pressure Mean [Right Arm] 112 02 Sat by Pulse Oximetry 99 Oxygen Delivery Method Room Air - Lab Data Lab results reviewed: Yes: I reviewed the patient's lab results. - CT Data CT Scan: C-Spine, T-Spine Time Received: 00:[address] Reviewed: Yes: I have viewed the radiologist's interpretation Preliminary Findings: No Fracture Seen Medical Decision Narrative: has acute m/s injury with stable neuro exam and xrays Neck Pain/Injury HPI - General Chief Complaint: Neck Pain/Injury Stated Complaint: AO 10/09@2000pain left jossie of neck and shoulder Time Seen by Provider: 10/09/21 23:25 Mode of Arrival: Ambulatory Source of Information: Patient, Medical Record Limitations: No Limitations Description of Symptoms (Recalled from ER Triage Doc. by RN): pt stated while hooking a car tonight he had bilateral pops in his neck states the pain i s11/10 states the pain is on the left side of the neck feels like torn ligaments. the pt was placen a in a c-collar at 2244 upon arrival in the room has had tylenol nothing else. PER PT no narcotics - History of Present Illness HPI Narrative: acute neck pain with jerking as he was working on car MD complaint: neck injury Onset (ago): hour(s) Place: home Radiation: left lateral Severity: moderate Associated symptoms: none Treatments prior to arrival: none - Related Data Previous Rx's Medication Instructions Recorded azithromycin 250 mg tablet See Rx Instructions PO .COMPLEX #6 10/02/21 tab methylprednisolone 4 mg tablets in 4 mg PO DAILY #21 tab 10/02/21 a dose pack Ketorolac Tromethamine [Toradol 10 mg PO Q6HP PRN #12 tab MDD 10/10/21 10mg tablet] 40mg/day predniSONE [Prednisone 20mg 20 mg PO BID #10 tab 10/10/21 Tab] Allergies Allergy/AdvReac Type Severity Reaction Status Date / Time brompheniramine Allergy Unknown Verified 09/18/20 16:09 [From DIMETAPP COLD-ALLERGY (PE)] phenylephrine Allergy Unknown Verified 09/18/20 16:09 [From DIMETAPP COLD-ALLERGY (PE)] [facility] History - Hepatitis A Screen Attestation statement:: This patient has been screened for Hepatitis A risk factors. I have reviewed the patient's past medical history: Yes Medical History: Reports:: Asthma, Depression, Migraine Denies:: Cancer, Diabetes Mellitus Type 1, Diabetes Mellitus Type 2, MRSA Other Surgeries: Yes: Appendectomy Amputation: No Fr
--- NOTE | 2021-10-09 23:32 | PC.NURSE ---
Pt back from RAD
[2021-10-10 01:11] VITALS: BP 144/83; PULSE 83; RESP 18; TEMP 36.7; O2SAT 98
== END 2021-10-10 01:12 | disposition home or self-care (01) ==
PROVIDERS: Emergency Provider Emergency Medicine; PCP Emergency Medicine
DX: S16.1XXA Strain of muscle, fascia and tendon at neck level, initial encounter (principal); G43.909 Migraine, unspecified, not intractable, without status migrainosus; J45.909 Unspecified asthma, uncomplicated; F32.A Depression, unspecified; F17.210 Nicotine dependence, cigarettes, uncomplicated; Z88.8 Allergy status to other drugs, medicaments and biological substances
CPT/HCPCS: 72125; 72128; 96372; 99285

== ENCOUNTER 2021-11-01 15:19 | Emergency (ER) | payer SELFPAY ==
[2021-11-01 15:35] VITALS: BP 144/83; PULSE 73; RESP 17; TEMP 36.7; O2SAT 98; BMI 27.7
--- NOTE | 2021-11-01 15:54 | HMH.EDUTC ---
[facility] [place] Clinical Impression: Epigastric abdominal tenderness Qualifiers: Presence of rebound: present Qualified Code(s): R10.826 - Epigastric rebound abdominal tenderness Disposition: Home, Self-Care Condition on Discharge: Good Instructions: DI for Epigastric Pain Additional Instructions: order given for h pylori breath test protonix as ordered follow up with pcp needs EGD if symptoms worsen or new symptoms return or be seen in ed Prescriptions: Pantoprazole Sodium [Protonix 20mg Tab] 20 mg PO DAILY #14 tab Transmission Status: Pending to [facility] Referrals: Aniceto Elena MD [Primary Care Provider] - Time of Disposition: 16:02 Medical Decision Making - Jameel Inquiry Pt receiving controlled substance: No Vital Signs: 11/01/21 15:35 Temperature 98.0 F Temperature Source Oral Pulse Rate [Right Brachial] 73 Respiratory Rate 17 Blood Pressure [Right Arm] 144/83 H Blood Pressure Mean [Right Arm] 103 Blood Pressure Source [Right Arm] Automatic Cuff Blood Pressure Position [Right Arm] Sitting 02 Sat by Pulse Oximetry 98 Oxygen Delivery Method Room Air [facility] [place]PI - General Chief complaint: [facility] Stated complaint: upper abd pain Time Seen by Provider: 11/01/21 15:55 Mode of Arrival: Ambulatory Source of Information: Patient Limitations: No Limitations Description of Symptoms (Recalled from Triage Doc. by RN): PATIENT C/O PRESSURE TO CHEST WHILE HE DRIVING THAT HE STATES HAS BEEN GOING ON FOR WEEKS HEENT Symptoms (Recalled from RN notes): No Resp Symptoms (Recalled from RN notes): No Skin Symptoms (Recalled from RN notes): No MS Symptoms (Recalled from RN notes): No Functional Status (Recalled from RN notes): WNL - History of Present Illness Provider Complaint: 26 yr old male presents for pain and tenderness in upper epi area for 2 weeks. pt states pain does not radiate,no soa,no pressure. pt states sitting causes pain to be worse. - Related Data Previous Rx's Medication Instructions Recorded Pantoprazole Sodium [Protonix 20mg 20 mg PO DAILY #14 tab 11/01/21 Tab] Allergies Allergy/AdvReac Type Severity Reaction Status Date / Time brompheniramine Allergy Unknown Verified 09/18/20 16:09 [From DIMETAPP COLD-ALLERGY (PE)] phenylephrine Allergy Unknown Verified 09/18/20 16:09 [From DIMETAPP COLD-ALLERGY (PE)] - Worker's Comp Is this a Worker's Comp case?: No [facility] History - Hepatitis A Screen Attestation statement:: This patient has been screened for Hepatitis A risk factors. I have reviewed the patient's past medical history: Yes Medical History: Reports:: Asthma, Depression, Migraine Denies:: Cancer, Diabetes Mellitus Type 1, Diabetes Mellitus Type 2, MRSA Other Surgeries: Yes: Appendectomy Amputation: No Fractures: No - Social History Smoking Status: Current every day smoker Tobacco Type: cigarettes # Packs/Day (cigarettes): 1 Alcohol Intake: never Alcohol Intake Frequency:: a few times a month Substance Use Type: denies use Occupational Status: other - Psychiatric History Pschychiatric History:: Reports:: Depression Family Hx:: No significant family history ROS Obtained: Yes Systems reviewed as appropriate & no additional complaints - Constitutional Constitutional: Reports system reviewed and no additional complaints, except as docu, Denies fever(s) - Eyes Eyes: Reports system reviewed and no additional complaints, except as docu, Denies itchy eyes - ENT Ears, Nose, Mouth, and Throat: Reports system reviewed and no additional complaints, except as docu, Denies sore throat - Cardiovascular Cardiovascular: Reports system reviewed and no additional complaints, except as docu, Denies chest pain, Denies chest pain at rest, Denies chest pain with activity, Denies diaphoresis, Denies dyspnea, Denies dyspnea on exertion, Denies lightheadedness, Denies shortness of breath when lying down, Denies radiating
[2021-11-01 16:06] VITALS: BP 144/83; PULSE 73; RESP 17; TEMP 36.7; O2SAT 98
== END 2021-11-01 16:10 | disposition home or self-care (01) ==
PROVIDERS: Emergency Provider Nurse Practitioner Family; PCP Emergency Medicine
DX: R10.826 Epigastric rebound abdominal tenderness (principal)
CPT/HCPCS: 99212; G0463

== ENCOUNTER 2021-12-19 20:22 | Emergency (ER) | payer SELFPAY ==
[2021-12-19] VITALS (8 sets, daily range): BP systolic 117–144; BP diastolic 70–98; PULSE 66–84; RESP 13–18; TEMP 36.7–36.9; O2SAT 97–100; BMI 28.9
--- NOTE | 2021-12-19 20:25 | XR_ITS ---
PROCEDURE INFORMATION: Exam: XR Chest Exam date and time: 12/19/2021 8:27 PM Age: 26 years old Clinical indication: Sternal or substernal pain; Additional info: Chest pain TECHNIQUE: Imaging protocol: Radiologic exam of the chest. Views: 2 views. COMPARISON: CR XR CHEST 2V 04/17/2020 4:24 AM FINDINGS: Lungs: Normal pulmonary expansion. Pulmonary vasculature grossly normal. 12 mm centrally calcified granuloma in the posterior right lung base unchanged from chest CT angiogram 05/17/2018. No gross pulmonary infiltrates or edema pattern. Pleural spaces: No pleural effusion. No pneumothorax. Heart/Mediastinum: Heart size normal. No tracheal/mediastinal shift. Bones/joints: No acute osseous abnormalities are identified. IMPRESSION: No acute thoracic process.
--- NOTE | 2021-12-19 20:25 | ECG_ITS ---
APPROVED REPORT Exam: Resting ECG HR:81 bpm ECG Measurements Heart Rate 81 AXES [place] 148 P 54 QRSd 105 QRS -55 QT 357 T 46 QTc 394 Conclusion SINUS RHYTHM LEFT AXIS DEVIATION [QRS AXIS < -30] INCOMPLETE RIGHT BUNDLE BRANCH BLOCK [90+ ms QRS DURATION, TERMINAL R IN V1/V2, 40+ ms S IN I/aVL/V4/V5/V6] NONSPECIFIC ST & T-WAVE ABNORMALITY ABNORMAL ECG UNCONFIRMED REPORT Electronically signed by : Erasmo Anderson MD 12/21/2021 20:13:00
[2021-12-19 20:46] LABS: Basophils # 0.1 K/mm3 (0-0.2); Basophils % 1.3 % (0.1-2.0); Eosinophils # 0.3 K/mm3 (0.0-0.4); Eosinophils % 2.7 % (0.1-12.0); Hematocrit 47.4 % (42.0-52.0); Hemoglobin 15.6 g/dL (14.1-18.0); Lymphocytes # 3.3 K/mm3 (0.7-4.5); Lymphocytes % 35.1 % (10-50); Mean Corpuscular HGB Conc 32.8 g/dL (31.8-35.4); Mean Corpuscular Hemoglobin 30.2 pg (27.0-31.2); Mean Corpuscular Volume 92.1 fl (80-94); Mean Platelet Volume 7.6 fl (7.4-10.4); Monocytes # 0.7 K/mm3 (0.1-1.0); Monocytes % 7.4 % (1.7-9.3); Neutrophils % 53.5 % (37.0-80.0); Platelet Count 326 K/mm3 (142-424); Red Blood Count 5.15 M/mm3 (4.60-6.20); Red Cell Distribution Width 12.7 % (11.5-17.5); White Blood Count 9.3 K/mm3 (4.8-10.8)
[2021-12-19 20:51] LABS: Alanine Aminotransferase 47 U/L (12-78); Albumin Level 4.5 g/dl (3.5-5.0); Alkaline Phosphatase 76 U/L (38-126); Amylase 54 U/L (30-110); Aspartate Amino Transferase 37 U/L (17-59); Bilirubin,Direct 0.2 mg/dl (0.0-0.4); Bilirubin,Indirect 0.2 mg/dL (0.0-0.9); Bilirubin,Total 0.4 mg/dl (0.2-1.3); Bilirubin,Unconjugated 0.2 mg/dL (0.0-1.1); Blood Urea Nitrogen 9 mg/dl (9-20); Carbon Dioxide 28 mmol/L (22.0-30.0); Chloride 104 mmol/L (98-107); Creatinine Clearance Estimated 156 mL/min (50-200); Estimated Glomerular Filt Rate 102 ml/min (>60); GFR (African American) 123 ML/MIN (>60); Glucose 116 mg/dl (74-100); Lipase 70 U/L (23-300); Sodium 137 mmol/L (136-145); Total Protein,Serum 7.4 g/dl (6.3-8.2)
[2021-12-19 21:05] LABS: Troponin I < 0.01 ng/ml (0.00-0.034)
--- NOTE | 2021-12-19 21:16 | CT_ITS ---
PROCEDURE INFORMATION: Exam: CT Abdomen And Pelvis With Contrast Exam date and time: 12/19/2021 9:22 PM Age: 26 years old Clinical indication: Abdominal pain; Epigastric; Prior surgery; Surgery date: 6+ months; Surgery type: Appendix; Additional info: Epigastric pain TECHNIQUE: Imaging protocol: Computed tomography of the abdomen and pelvis with contrast. Radiation optimization: All CT scans at this facility use at least one of these dose optimization techniques: automated exposure control; mA and/or kV adjustment per patient size (includes targeted exams where dose is matched to clinical indication); or iterative reconstruction. Contrast material: ISOVUE; Contrast volume: 75 ml; Contrast route: IV; COMPARISON: ABDPELW CT ABD PELVIS W/ CONTRAST 05/26/2016 10:35 AM FINDINGS: Lungs: Chronic 14 mm centrally calcified granuloma in the posterior right lower lobe unchanged.Mild atelectasis in the lung bases. Heart: Heart size normal. Mediastinal space: The visualized distal esophagus is largely contracted without gross abnormality. Liver: Normal contour. No mass lesions. No intrahepatic biliary ductal dilatation. Gallbladder and bile ducts: Normal. No calcified stones. No ductal dilation. Pancreas: Normal. No inflammatory changes or ductal dilation. Spleen: Granulomatous calcifications in the spleen without acute splenic abnormality. Adrenal glands: Normal. No adrenal mass. Kidneys and ureters: No acute abnormalities. No hydronephrosis or hydroureter. No urinary tract stones are identified. Stomach and bowel: The stomach is largely contracted without gross abnormality. The small bowel is nondilated with no gross abnormality. The mid and distal colon are largely contracted which likely contributes to the mildly thick walled appearance. This makes it difficult to exclude mild colitis. No evidence of perforation or abscess. Appendix: Prior appendectomy. Intraperitoneal space: No free fluid or air. Vasculature: No acute process. No abdominal aortic aneurysm. Lymph nodes: No adenopathy. Urinary bladder: Questionable mild urinary bladder wall thickening and minimal adjacent stranding. Correlate with UA for evidence of cystitis. Reproductive: Unremarkable as visualized. Bones/joints: No acute osseous abnormalities. Soft tissues: Very small fatty umbilical hernia . No evidence of associated bowel herniation or strangulation. IMPRESSION: 1. No definite acute process. 2. The mid and distal colon are largely contracted, probably accounting for the mildly thick-walled appearance although this makes it difficult to exclude mild colitis. No evidence of perforation or abscess. 3. Questionable slight urinary bladder wall thickening and adjacent stranding, correlate with UA for evidence of cystitis. 4. Additional nonemergent findings detailed above.
--- NOTE | 2021-12-19 22:26 | HMH.EDGENADL ---
Discharge Plan Disposition Patient Disposition: Home, Self-Care Chief Complaint: PAIN Prescriptions Prescriptions: New pantoprazole [Protonix] 40 mg tablet,delayed release (DR/EC) 40 mg PO DAILY Qty: 30 0RF No Action pantoprazole 20 MG tablet,delayed release (DR/EC) 20 mg PO DAILY Referrals Follow up/Referrals: Aniceto Elena MD [Primary Care Provider] - See instructions Clinical Impressions Clinical Impression: Epigastric abdominal tenderness Instructions Patient Instructions: DI for Acute Abdominal Pain Discharge ED Provider: Aniceto Elena General Adult HPI General Chief complaint: PAIN Stated complaint: Epigastric pain Time Seen by Provider: 12/19/21 22:26 Mode of Arrival: Family Vehicle Source of Information: Patient and Medical Record Limitations: No Limitations Description of Symptoms (Recalled from ER Triage Doc. by RN): Pt c/o epigastric pain that has been present and intermittent for 2 months. States it started up again today . He took 3 tylenol and 2 tums @ 4712-5265 tonight without relief. States he has not ate since 0430 this morning. Denies any n/v/d. Denies SOA, cough, or dizziness. He was seen in October by Timbo and was told he needed test for H Pylori and protonix but did not have insurance to get test completed. Pt was taking Protonix and said it was courtney helping . He reports that the pain is intense with cough and sneezing. History of Present Illness HPI narrative: has epigastric pain worse of late w/o vomiting or melena - worse with cough Onset (ago): day(s) Location: abdomen Severity: moderate Consistency: intermittent Associated symptoms: denies other symptoms Related Data Home Medications Medication Instructions Recorded Confirmed pantoprazole 20 mg tablet,delayed 20 mg PO DAILY GERD 12/19/21 12/19/21 release Previous Rx's Medication Instructions Recorded pantoprazole 40 mg tablet,delayed 40 mg PO DAILY #30 tabs 12/19/21 release (Protonix) Allergies Allergy/AdvReac Type Severity Reaction Status Date / Time brompheniramine Allergy Unknown Verified 09/18/20 16:09 [From DIMETAPP COLD-ALLERGY (PE)] phenylephrine Allergy Unknown Verified 09/18/20 16:09 [From DIMETAPP COLD-ALLERGY (PE)] PFSH PFSH Social History Smoking Status: Current every day smoker tobacco type: cigarettes packs per day: 1 second hand exposure: No alcohol intake: never substance use type: denies use current occupational status: other number of children: 0 ROS Obtained: Yes All systems reviewed & no additional complaints except as documented Physical Exam General General appearance: alert Head Head exam: normocephalic Eye Eye exam: Present PERRL and EOMI; Absent jaundice ENT ENT exam: Present mucous membranes moist Neck Neck exam: Present full ROM Respiratory Respiratory exam: Absent respiratory distress Cardiovascular Cardiovascular exam: Present regular rate; Absent systolic murmur Abdominal Exam Abdominal exam: Present soft and tenderness; Absent guarding, rebound or rigidity Abdominal tenderness: Present epigastrium and moderate Neurological Exam Neurological exam: Present alert, oriented X3 and CN II-XII intact Psychiatric Psychiatric exam: Present normal affect Skin Skin exam: Absent rash Medical Decision Making Medical Records Medical records reviewed: Yes I reviewed the patient's medical records. Jameel Inquiry Pt receiving controlled substance: No Vital Signs: 12/19/21 20:23 12/19/21 21:00 12/19/21 20:53 Temperature 98.4 F Temperature Source Oral Pulse Rate 84 68 Pulse Rate [Right] 84 Respiratory Rate 17 13 Blood Pressure 132/86 Blood Pressure [Right Arm] 140/98 H Blood Pressure Mean [Right Arm] 112 Blood Pressure Source [Right Arm] Automatic Cuff 02 Sat by Pulse Oximetry 100 97 Oxygen Delivery Method Room Air Room Air Lab Data Lab results reviewed: Yes I reviewed the pat
[2021-12-19 22:43] LABS: Microscopic, Urine URINE MICROSCOPIC (MICROSCOPIC)
[2021-12-19 22:44] LABS: Appearance,Urine CLEAR (Clear); Bilirubin,Urine Negative (Negative); Blood, Urine Negative (Negative); Color,Urine YELLOW (Yellow); Glucose,Urine (UA) Negative (Negative); Ketones,Urine Negative (Negative); Leukocyte Esterase,Urine Negative (Negative); Nitrate,Urine Negative (Negative); Protein,Urine Negative (Negative); Specific Gravity, Urine <= 1.005 (1.005-1.030); Urobilinogen,Urine 0.2 EU/dl (0.2)
[2021-12-19 22:58] LABS: Squamous Epithelial Cell,Urine Occasional #/hpf (0-5); WBC,Urine Occasional #/hpf (0-3)
--- NOTE | 2021-12-19 23:23 | HMH.EDGENADL ---
General Adult HPI General Mode of Arrival: Family Vehicle Source of Information: Patient and Medical Record Limitations: No Limitations Description of Symptoms (Recalled from ER Triage Doc. by RN): Pt c/o epigastric pain that has been present and intermittent for 2 months. States it started up again today . He took 3 tylenol and 2 tums @ 8254-2838 tonight without relief. States he has not ate since 0430 this morning. Denies any n/v/d. Denies SOA, cough, or dizziness. He was seen in October by Timbo and was told he needed test for H Pylori and protonix but did not have insurance to get test completed. Pt was taking Protonix and said it was courtney helping . He reports that the pain is intense with cough and sneezing. History of Present Illness Onset (ago): day(s) Location: abdomen Severity: moderate Associated symptoms: denies other symptoms Related Data Allergies Allergy/AdvReac Type Severity Reaction Status Date / Time brompheniramine Allergy Unknown Verified 12/31/21 09:13 [From DIMETAPP COLD-ALLERGY (PE)] phenylephrine Allergy Unknown Verified 12/31/21 09:13 [From DIMETAPP COLD-ALLERGY (PE)] [facility] Medical History (Updated 01/24/22 @ 21:05 by Aniceto Elena MD) Gallbladder disease Social History Smoking Status: Current every day smoker tobacco type: cigarettes packs per day: 1 second hand exposure: No alcohol intake: never substance use type: denies use current occupational status: employed and other Travel in the last 8 weeks: None number of children: 0 ROS Obtained: Yes All systems reviewed & no additional complaints except as documented Physical Exam General General appearance: alert Head Head exam: normocephalic Eye Eye exam: Present PERRL and EOMI ENT ENT exam: Present mucous membranes moist Neck Neck exam: Present trachea midline Respiratory Respiratory exam: Present normal lung sounds bilaterally Cardiovascular Cardiovascular exam: Present regular rate Abdominal Exam Abdominal exam: Present soft, tenderness and Keene's sign; Absent guarding Back Exam Back exam: Absent CVA tenderness (R) Neurological Exam Neurological exam: Present alert and CN II-XII intact Psychiatric Psychiatric exam: Present normal affect Skin Skin exam: Absent rash Medical Decision Making Medical Records Medical records reviewed: Yes I reviewed the patient's medical records. Jameel Inquiry Pt receiving controlled substance: No Vital Signs: 12/19/21 20:23 12/19/21 21:00 12/19/21 20:53 Temperature 98.4 F Temperature Source Oral Pulse Rate 84 68 Pulse Rate [Right] 84 Respiratory Rate 17 13 Blood Pressure 132/86 Blood Pressure [Right Arm] 140/98 H Blood Pressure Mean Blood Pressure Mean [Right Arm] 112 Blood Pressure Source [Right Arm] Automatic Cuff 02 Sat by Pulse Oximetry 100 97 Oxygen Delivery Method Room Air Room Air 12/19/21 23:05 12/19/21 23:05 12/19/21 21:53 Temperature 98.1 F Temperature Source Pulse Rate 78 78 Pulse Rate [Right] Respiratory Rate 16 18 Blood Pressure 130/70 144/76 H Blood Pressure [Right Arm] Blood Pressure Mean 98 Blood Pressure Mean [Right Arm] Blood Pressure Source [Right Arm] 02 Sat by Pulse Oximetry 97 Oxygen Delivery Method Room Air Room Air 12/19/21 22:06 12/19/21 22:24 12/19/21 22:53 Temperature Temperature Source Pulse Rate 66 71 71 Pulse Rate [Right] Respiratory Rate 18 Blood Pressure 117/84 125/72 130/70 Blood Pressure [Right Arm] Blood Pressure Mean 92 89 91 Blood Pressure Mean [Right Arm] Blood Pressure Source [Right Arm] 02 Sat by Pulse Oximetry 99 97 97 Oxygen Delivery Method Lab Data Lab results reviewed: Yes I reviewed the patient's lab results. Lab Results 12/19/21 20:32: WBC 9.3, RBC 5.15, Hgb 15.6, Hct 47.4, MCV 92.1, MCH 30.2, MCHC 32.8, RDW 12.7, Plt Count 326, MPV 7.6, Neut %
== END 2021-12-19 23:22 | disposition home or self-care (01) ==
PROVIDERS: Emergency Provider Emergency Medicine; PCP Emergency Medicine
DX: R10.816 Epigastric abdominal tenderness (principal); Z79.899 Other long term (current) drug therapy; R05.9 Cough, unspecified; Z88.8 Allergy status to other drugs, medicaments and biological substances; Z72.0 Tobacco use
CPT/HCPCS: 71046; 74177; 80048; 80076; 81001; 82150; 83690; 84484; 85025; 93005; 96365; 96375; 99284; Q9967

== ENCOUNTER → 2021-12-22 10:31 | Outpatient (CLI) | payer SELFPAY ==
--- NOTE | 2021-12-22 10:35 | US_ITS ---
FINAL REPORT CLINICAL HISTORY: abdominal pain FINDINGS: Sonographic images of the right upper quadrant were obtained. The pancreas is partially obscured.The liver has an unremarkable appearance. There are echogenic nonshadowing foci along the gallbladder wall consistent with polyps. There is sludge within the gallbladder. There is no evidence of biliary ductal dilatation.The common duct measures 3 mm. The right kidney measures 10.9 cm in length and is unremarkable. IMPRESSION: Sludge and polyps in the gallbladder. Otherwise unremarkable exam. Reviewed, Interpreted and Dictated by Hunter Celestin III, MD Transcribed by Earline Nathan Authenticated and [facility]
== END ==
PROVIDERS: PCP Emergency Medicine; Visit Provider Emergency Medicine
DX: R10.9 Unspecified abdominal pain (principal)
CPT/HCPCS: 76705

== ENCOUNTER 2022-01-07 19:23 | Emergency (ER) | payer BC, SELFPAY ==
--- NOTE | 2022-01-07 19:31 | EXP.UTC ---
Discharge Plan Disposition Patient Disposition: Home, Self-Care Condition: Good Prescriptions Prescriptions: New benzonatate [benzonatate] 100 mg capsule 100 mg PO TIDP PRN (Reason: Cough) Qty: 30 0RF ondansetron 4 mg Tablet,Disintegrating 4 mg PO Q8H PRN (Reason: Nausea) Qty: 20 0RF ibuprofen [IBU] 800 mg tablet 800 mg PO Q8HP PRN (Reason: Moderate Pain) Qty: 30 0RF No Action pantoprazole [Protonix] 40 mg tablet,delayed release (DR/EC) 40 mg PO DAILY Qty: 30 0RF Referrals Follow up/Referrals: Aniceto Elena MD [Primary Care Provider] - See instructions Activity Restrictions/Add. Instructions Additional Instructions/Restrictions: Drink plenty of fluids. Take tylenol or ibuprofen for pain or fever. Take the medications as directed. Follow up with your regular doctor. GO TO THE ER FOR ANY WORSENING SYMPTOMS Quarantine until you know the results of your covid-19 test. Notify your school or workplace of your results and follow their instructions regarding return to work/school. Clinical Impressions Clinical Impression: Viral syndrome, Exposure to 2019 novel coronavirus Stand Alone Forms Stand Alone Forms: Work/School Release Instructions Patient Instructions: DI for Viral Syndrome Discharge ED Provider: Amish Oliver [facility] General Stated complaint: Fever,body aches,ISAAC Time Seen by Provider: 01/07/22 19:44 History of Present Illness Provider Complaint: He states that for the past 1 day he has had headache, chills, low grade fever up to 100. 5, malaise and a nonproductive cough. He has been exposed to someone with covid-19 in his household. Related Data Previous Rx's Medication Instructions Recorded pantoprazole 40 mg tablet,delayed 40 mg PO DAILY #30 tabs 12/19/21 release (Protonix) benzonatate 100 mg capsule 100 mg PO TIDP PRN Cough #30 caps 01/07/22 ibuprofen 800 mg tablet (IBU) 800 mg PO Q8HP PRN Moderate Pain 01/07/22 #30 tabs ondansetron 4 mg disintegrating 4 mg PO Q8H PRN Nausea #20 tabs 01/07/22 tablet Allergies Allergy/AdvReac Type Severity Reaction Status Date / Time brompheniramine Allergy Unknown Verified 12/31/21 09:13 [From DIMETAPP COLD-ALLERGY (PE)] phenylephrine Allergy Unknown Verified 12/31/21 09:13 [From DIMETAPP COLD-ALLERGY (PE)] [facility] Medical History (Updated 01/07/22 @ 20:20 by Amish Oliver APRN) Gallbladder disease Social History Smoking Status: Current every day smoker tobacco type: cigarettes packs per day: 1 second hand exposure: No alcohol intake: never substance use type: denies use current occupational status: employed and other Travel in the last 8 weeks: None number of children: 0 ROS Obtained: Yes All systems reviewed & no additional complaints except as documented Constitutional Constitutional: Reports system reviewed and no additional complaints, except as documented, Denies chills and Denies fever(s) Eyes Eyes: Denies eye discharge ENT Ears, Nose, Mouth, and Throat: Denies dysphagia, Denies sore throat and Denies throat swelling Cardiovascular Cardiovascular: Denies chest pain and Denies dyspnea Respiratory Respiratory: Denies chest congestion, Denies cough and Denies dyspnea Gastrointestinal Gastrointestingal: Denies abdominal pain, constipation, diarrhea, dysphagia, nausea or vomiting Musculoskeletal Musculoskeletal: Denies arthralgias Integumentary/Breasts Skin/Breast: Denies rash Neurologic Neurologic: Denies paresthesias Allergic/Immunologic Allergic/Immunologic: Denies throat swelling Physical Exam General General appearance: alert and in no apparent distress Head Head exam: atraumatic, normocephalic and normal inspection Eye Eye exam: Present normal appearance, PERRL and EOMI ENT ENT exam: Present normal exam, normal oropharynx, mucous membranes moist, TM's normal bilaterally and n
[2022-01-07 19:44] VITALS: BP 126/88; PULSE 101; RESP 18; TEMP 38.3; O2SAT 97; BMI 28.9
[2022-01-07 19:55] VITALS: BP 126/88; PULSE 101; RESP 18; TEMP 38.3; O2SAT 97
== END 2022-01-07 20:29 | disposition home or self-care (01) ==
PROVIDERS: Emergency Provider Nurse Practitioner Family; PCP Emergency Medicine
DX: U07.1 COVID-19 (principal)
CPT/HCPCS: 99212; C9803; G0463; U0003; U0005

== ENCOUNTER → 2022-01-28 08:53 | Outpatient (CLI) | payer BC, SELFPAY ==
[2022-01-28 09:49] LABS: Basophils # 0.1 K/mm3 (0-0.2); Basophils % 1.1 % (0.1-2.0); Eosinophils # 0.2 K/mm3 (0.0-0.4); Eosinophils % 2.4 % (0.1-12.0); Hematocrit 44.1 % (42.0-52.0); Hemoglobin 14.9 g/dL (14.1-18.0); Lymphocytes # 3.1 K/mm3 (0.7-4.5); Lymphocytes % 30.2 % (10-50); Mean Corpuscular HGB Conc 33.9 g/dL (31.8-35.4); Mean Corpuscular Hemoglobin 31.2 pg (27.0-31.2); Mean Corpuscular Volume 92.1 fl (80-94); Monocytes # 0.7 K/mm3 (0.1-1.0); Monocytes % 6.5 % (1.7-9.3); Neutrophils # 6.1 K/mm3 (1.8-7.8); Neutrophils % 59.8 % (37.0-80.0); Platelet Count 349 K/mm3 (142-424); Red Blood Count 4.78 M/mm3 (4.60-6.20); Red Cell Distribution Width 12.7 % (11.5-17.5); White Blood Count 10.2 K/mm3 (4.8-10.8)
[2022-01-28 10:12] LABS: Chloride 99 mmol/L (98-107)
[2022-01-28 10:13] LABS: Potassium 4.7 mmoL/L (3.5-5.1); Sodium 141 mmol/L (136-145)
[2022-01-28 10:15] LABS: Alanine Aminotransferase 66 U/L (12-78); Alkaline Phosphatase 113 U/L (38-126); Amylase 54 U/L (30-110); Anion Gap 17.7 mEq/L (5-15); Aspartate Amino Transferase 50 U/L (17-59); Blood Urea Nitrogen 18 mg/dl (9-20); Calcium 9.5 mg/dl (8.4-10.2); Carbon Dioxide 29 mmol/L (22.0-30.0); Estimated Glomerular Filt Rate 102 ml/min (>60); GFR (African American) 123 ML/MIN (>60); Glucose 117 mg/dl (74-100)
[2022-01-28 10:16] LABS: Albumin Level 4.8 g/dl (3.5-5.0); Albumin/Globulin Ratio 1.8 (1.1-1.8); Bilirubin,Total 0.1 mg/dl (0.2-1.3); Globulin 2.6 g/dL (1.3-3.2); Lipase 130 U/L (23-300); Total Protein,Serum 7.4 g/dl (6.3-8.2)
[2022-02-18 12:42] LABS: Hep A Ab, IgM NEGATIVE; Hepatitis B Core Antibody IgM NEGATIVE; Hepatitis B Surface Antigen NEGATIVE; Hepatitis C Antibody <0.1
== END ==
LOC: LAB 08:54
PROVIDERS: PCP Emergency Medicine; Visit Provider Surgery
DX: K82.9 Disease of gallbladder, unspecified (principal)
CPT/HCPCS: 36415; 80053; 80074; 82150; 83690; 85025

== ENCOUNTER 2022-02-01 09:05 | Day surgery (SDC) | payer BC, SELFPAY ==
[2022-01-28 09:49] VITALS: BMI 28.8
[2022-02-01] VITALS (13 sets, daily range): BP systolic 107–144; BP diastolic 56–91; PULSE 67–78; RESP 14–18; TEMP 36.1–36.3; O2SAT 95–99
--- NOTE | 2022-02-01 09:44 | EXP.ANES.CKL ---
[facility] Medical History Acne Allergies Anxiety Asthma Gallbladder disease Hemorrhoid History of COVID-19 History of gastroesophageal reflux (GERD) Hypertension Migraine Sinus headache Surgical History History of appendectomy Family History Grandmother Diabetes Hypertension Other Cancer Social History Smoking Status: Current every day smoker tobacco type: cigarettes packs per day: 1 years smoked: 14 second hand exposure: No alcohol intake: former substance use type: marijuana, crack/cocaine, heroin and methamphetamine current occupational status: employed Travel in the last 8 weeks: None number of children: 0 [facility] Anesthesia Checklist Patient Identification Patient Identification: Verbal (Name & ) Structural Data Admitted From: Home Planned Operative Procedure/s: lap tommie Consent for Planned Operative Procedure(s) Verified: Yes Airway Assessment C-Spine Mobility Assessed: Yes TMJ Mobility Assessed: Yes Dentition: Good Dentition Neurological Assessment Level of Consciousness: Awake, Alert and Appropriate Anesthesia Plan Anesthesia Risk discussed: Yes Anesthesia Plan: Verified ASA Class: II Anesthesia Type: General
--- NOTE | 2022-02-01 09:48 | EXP.GEN.HP ---
HPI HPI HPI: Patient presents for cholecystectomy. He is a 26-year-old male referred by Dr. Elena for gallbladder.? Patient states, I have been having the same pain for a while. ? He describes pain in his epigastrium and left upper quadrant characterized as sharp.? He has developed radiation into his back.? He had been seen in the emergency department on 11/01/2021 for this and managed as an outpatient.? He has tried kyro-fxy-vihnrwa Tums and Tylenol.? He is also tried Protonix.? This is given him minimal relief.? He was seen back in the emergency department on 12/19/2021 with symptoms.? He states that the pain is worse when he eats.? He states that this makes it 1000 times worse .? Interestingly sneezing causes quite severe pain.? His pain is worse with spicy and fatty foods.? He states that he was told to eat a bland diet such as salads.? When he was seen and evaluated in the emergency department he underwent CT scan which revealed no definite acute process.? The mid and distal colon were contracted and it was felt that this could not exclude mild colitis.? He underwent gallbladder ultrasound which reveals sludge and polyps in the gallbladder with normal common bile duct.? Patient states that he had undergone laparoscopic appendectomy a few years ago and was told that he may need his gallbladder out at some point.? Patient denies history of ulcer disease, hepatitis, pancreatitis.? Patient works at [employer]. [facility] [facility] Medical History Acne Allergies Anxiety Asthma Gallbladder disease Hemorrhoid History of COVID-19 History of gastroesophageal reflux (GERD) Hypertension Migraine Sinus headache Surgical History History of appendectomy Family History Diabetes Grandmother Cancer Hypertension Grandmother Social History Smoking Status: Current every day smoker tobacco type: cigarettes packs per day: 1 years smoked: 14 second hand exposure: No alcohol intake: former substance use type: marijuana, crack/cocaine, heroin and methamphetamine current occupational status: employed Travel in the last 8 weeks: None number of children: 0 Meds Home Medications and Allergies Home Medications Medication Instructions Recorded Confirmed Type ibuprofen 800 mg tablet (IBU) 800 mg PO DAILY Pain 01/28/22 01/28/22 History New Prescriptions to Start Prescriptions: Allergies Allergy/AdvReac Type Severity Reaction Status Date / Time brompheniramine Allergy Severe Anaphylaxis Verified 01/28/22 09:29 [From DIMETAPP COLD-ALLERGY (PE)] phenylephrine Allergy Severe Anaphylaxis Verified 01/28/22 09:29 [From DIMETAPP COLD-ALLERGY (PE)] Exam Data for Last 24 hours Vital signs and Labs for Last 24 Hours: Temp Pulse Resp BP Pulse Ox 97.1 F L 74 18 130/77 99 02/01/22 09:22 02/01/22 09:22 02/01/22 09:22 02/01/22 09:22 02/01/22 09:22 *Routine HEENT Exam Head: Present normocephalic Eye: Present EOMI ENT: Present mucous membranes moist *Routine Respiratory Exam Respiratory: Absent accessory muscle use *Routine Cardiovascular Exam Cardiovascular: Present RRR *Routine Abdominal Exam Abdominal: Present soft *Routine Rectal Exam Rectal:: deferred *Routine Genitalia Exam Genitalia:: deferred Assessment and Plan *Assessment and plan (1) Gallbladder disease: Status: Acute Category: Medical Code(s): K82.9 - Disease of gallbladder, unspecified Plan Plan for laparoscopic possibly open cholecystectomy.
--- NOTE | 2022-02-01 10:57 | EXP.OP.NOTE ---
Date of procedure: 02/01/22 Pre-op Diagnosis:: Gallbladder disease Post-op Diagnosis:: Same Procedure performed:: Laparoscopic cholecystectomy Surgeon:: Hunter Darden MD BATCH UNIT TREATER:: Other Anesthesia: GETA Estimated blood loss (mL): 10 Clinical Note:: Patient presents for cholecystectomy.? He? is a 26-year-old male referred by Dr. Elena for gallbladder.? Patient states, I have been having the same pain for a while. ? He describes pain in his epigastrium and left upper quadrant characterized as sharp.? He has developed radiation into his back.? He had been seen in the emergency department on 11/01/2021 for this and managed as an outpatient.? He has tried [id number]-zgn-bnsnpax Tums and Tylenol.? He is also tried Protonix.? This is given him minimal relief.? He was seen back in the emergency department on 12/19/2021 with symptoms.? He states that the pain is worse when he eats.? He states that this makes it 1000 times worse .? Interestingly sneezing causes quite severe pain.? His pain is worse with spicy and fatty foods.? He states that he was told to eat a bland diet such as salads.? When he was seen and evaluated in the emergency department he underwent CT scan which revealed no definite acute process.? The mid and distal colon were contracted and it was felt that this could not exclude mild colitis.? He underwent gallbladder ultrasound which reveals sludge and polyps in the gallbladder with normal common bile duct.? Patient states that he had undergone laparoscopic appendectomy a few years ago and was told that he may need his gallbladder out at some point.? Patient denies history of ulcer disease, hepatitis, pancreatitis.? Patient works at [employer]. Operative findings:: He had a somewhat distended gallbladder. There was some hepatomegaly. Operative note:: Patient was taken to the operating room. He was given preoperative intravenous antibiotics. In the operating room he was placed in a supine position. General anesthesia was induced via endotracheal tube. Abdomen was prepped and draped in the standard surgical fashion. Subumbilical skin incision was made and while performing abdominal wall lift Veress needle was inserted. CO2 pneumoperitoneum was achieved to 15 mmHg. 11 mm trocar was inserted at the umbilicus. Intraperitoneal contents were visualized. He was positioned in reverse Trendelenburg left side down. A couple of 5 mm trochars were inserted in the right upper abdomen. 10 mm trocar was inserted in the epigastrium. He did have some mild hepatomegaly and findings of mild fatty liver. Liver was elevated and the gallbladder was identified and retracted anteriorly and superiorly over the dome of the liver. Infundibulum of the gallbladder was retracted anterior laterally. Blunt dissection was carried out the neck of the gallbladder bluntly incising the visceral peritoneum. Cystic duct and cystic artery were clearly identified and the critical view of safety. Cystic duct was isolated, multiply clipped, and sharply divided. Cystic artery was carefully coagulated with KVK TEAM ultrasonic robotic agueda and divided. Gallbladder was dissected free from the liver in a retrograde fashion using KVK TEAM ultrasonic harmonic agueda. Gallbladder was placed within an Endo Catch retrieval device removed from the peritoneal cavity via the umbilical trocar site. Limited irrigation was performed of the gallbladder fossa and perihepatic space. There was good hemostasis. Trochars were removed as CO2 pneumoperitoneum was evacuated. Fascia at the umbilicus was closed with a couple of interrupted 0 Vicryl sutures. Anterior fascia at the epigastric site was closed with a 0 Vicryl suture. Local anesthetic was infiltrated. Skin incisions were closed with 4-0 Monocryl in a subcuticular fashion. Steri-Strips and dressings were applied. Condition: stable Disposition: PACU Complications:: None immediately apparent
--- NOTE | 2022-02-01 11:13 | EXP.ANES.CKL ---
[facility] Medical History Acne Allergies Anxiety Asthma Gallbladder disease Hemorrhoid History of COVID-19 History of gastroesophageal reflux (GERD) Hypertension Migraine Sinus headache Surgical History History of appendectomy Family History Grandmother Diabetes Hypertension Other Cancer Social History Smoking Status: Current every day smoker tobacco type: cigarettes packs per day: 1 years smoked: 14 second hand exposure: No alcohol intake: former substance use type: marijuana, crack/cocaine, heroin and methamphetamine current occupational status: employed Travel in the last 8 weeks: None number of children: 0 [facility] Anesthesia Checklist Patient Identification Patient Identification: Arm Band and Verbal (Name & ) Structural Data Admitted From: Home Planned Operative Procedure/s: Laparacopic Cholecystectomy Verified Documents: Surgical Consent NPO Status Verified Time NPO: 00:00 Additional verifications Anesthesia Reactions: No Hx Blood Transfusions: No Blood Transfusion Reaction: No Airway Assessment C-Spine Mobility Assessed: Yes TMJ Mobility Assessed: Yes Dentition: Good Dentition Neurological Assessment Level of Consciousness: Awake, Alert and Appropriate Anesthesia Plan Anesthesia Risk discussed: Yes ASA Class: II Anesthesia Type: MAC
--- NOTE | 2022-02-01 11:34 | SUR.PHASEI ---
1110- pt arrived to the pacu with oral airway in place.
--- NOTE | 2022-02-01 11:42 | SUR.PHASEI ---
1141-oral airway removed at this time
== END 2022-02-01 12:40 | disposition home or self-care (01) ==
PROVIDERS: PCP Emergency Medicine; Visit Provider Surgery
PROC: 0FT44ZZ Resection of Gallbladder, Percutaneous Endoscopic Approach (ICD-10-PCS; CPT 47562; principal; 2022-02-01 11:00)
DX: K81.1 Chronic cholecystitis (principal); Z79.899 Other long term (current) drug therapy; Z72.0 Tobacco use
CPT/HCPCS: 47562; 88304; 96374; J2405

== ENCOUNTER 2022-09-27 21:40 | Emergency (ER) | payer SELFPAY ==
--- NOTE | 2022-09-27 21:44 | ECG_ITS ---
APPROVED REPORT Exam: Resting ECG HR:72 bpm ECG Measurements Heart Rate 72 AXES FL 141 P 51 QRSd 108 QRS -46 QT 363 T -38 QTc 387 Conclusion SINUS RHYTHM INCOMPLETE RIGHT BUNDLE BRANCH BLOCK [90+ ms QRS DURATION, TERMINAL R IN V1/V2, 40+ ms S IN I/aVL/V4/V5/V6] LEFT ANTERIOR FASCICULAR BLOCK [QRS AXIS <= -45, QR IN I, RS IN II] NONSPECIFIC T-WAVE ABNORMALITY ABNORMAL ECG UNCONFIRMED REPORT Electronically signed by : Erasmo Anderson MD 09/30/2022 09:30:19
[2022-09-27 21:48] VITALS: BP 147/102; PULSE 76; RESP 16; TEMP 36.7; O2SAT 100; BMI 27.7
--- NOTE | 2022-09-27 21:52 | XR_ITS ---
PROCEDURE INFORMATION: Exam: XR Chest Exam date and time: 09/27/2022 10:04 PM Age: 27 years old Clinical indication: Cough and shortness of breath; Additional info: Cough, SOA TECHNIQUE: Imaging protocol: Radiologic exam of the chest. Views: 2 views. COMPARISON: CR XR CHEST 2V 12/19/2021 8:27 PM FINDINGS: Lungs: 14 mm right basilar pulmonary nodule compatible with known calcified granuloma seen on prior imaging studies. Lungs are otherwise clear Pleural spaces: Unremarkable. No pleural effusion. No pneumothorax. Heart/Mediastinum: Unremarkable. No cardiomegaly. Bones/joints: Unremarkable. IMPRESSION: No active disease
--- NOTE | 2022-09-27 21:52 | CT_ITS ---
PROCEDURE INFORMATION: Exam: CTA Chest With Contrast Exam date and time: 09/27/2022 10:21 PM Age: 27 years old Clinical indication: Cough and shortness of breath; Additional info: Cough, SOA TECHNIQUE: Imaging protocol: Computed tomographic angiography of the chest with contrast. Exam focused on the arteries. 3D rendering (Not supervised by radiologist): MIP and/or 3D reconstructed images were created by the technologist. Radiation optimization: All CT scans at this facility use at least one of these dose optimization techniques: automated exposure control; mA and/or kV adjustment per patient size (includes targeted exams where dose is matched to clinical indication); or iterative reconstruction. Contrast material: ISOVUE; Contrast volume: 70 ml; Contrast route: INTRAVENOUS (IV); REPORTING DATA: Count of CT and Cardiac NM exams in prior 12 months: This patient has received 3 known CTs and 0 known cardiac nuclear medicine studies in the 12 months prior to the current study. COMPARISON: [facility] CT angio chest 05/17/2018 1:14 AM FINDINGS: Pulmonary arteries: Normal. No pulmonary emboli. Aorta: Unremarkable. No aortic aneurysm. No aortic dissection. Lungs: 1.4 cm centrally calcified granuloma noted in the posterior right lung base. Lungs are otherwise clear. Pleural spaces: Unremarkable. No pneumothorax. No pleural effusion. Heart: Unremarkable. No cardiomegaly. No pericardial effusion. Lymph nodes: Unremarkable. No enlarged lymph nodes. Gallbladder and bile ducts: Gallbladder is surgically absent. Bones/joints: Unremarkable. No acute fracture. Soft tissues: Unremarkable. IMPRESSION: No acute abnormality
[2022-09-27 22:00] VITALS: BP 126/90; PULSE 65; RESP 12; O2SAT 100
[2022-09-27 22:00] LABS: Basophils # 0.1 K/mm3 (0-0.2); Basophils % 0.9 % (0.1-2.0); Eosinophils # 0.4 K/mm3 (0.0-0.4); Eosinophils % 3.5 % (0.1-12.0); Hematocrit 45.2 % (42.0-52.0); Hemoglobin 15.4 g/dL (14.1-18.0); Lymphocytes # 4.1 K/mm3 (0.7-4.5); Lymphocytes % 38.1 % (10-50); Mean Corpuscular Hemoglobin 30.4 pg (27.0-31.2); Mean Corpuscular Volume 89.4 fl (80-94); Mean Platelet Volume 6.5 fl (7.4-10.4); Monocytes # 0.8 K/mm3 (0.1-1.0); Monocytes % 7.1 % (1.7-9.3); Neutrophils # 5.4 K/mm3 (1.8-7.8); Neutrophils % 50.3 % (37.0-80.0); Platelet Count 292 K/mm3 (142-424); Red Blood Count 5.06 M/mm3 (4.60-6.20); Red Cell Distribution Width 12.4 % (11.5-17.5); White Blood Count 10.7 K/mm3 (4.8-10.8)
[2022-09-27 22:11] LABS: Alanine Aminotransferase 72 U/L (12-78); Albumin Level 4.7 g/dl (3.5-5.0); Albumin/Globulin Ratio 1.6 (1.1-1.8); Alkaline Phosphatase 105 U/L (38-126); Anion Gap 16.8 mEq/L (5-15); Aspartate Amino Transferase 47 U/L (17-59); Bilirubin,Total 0.4 mg/dl (0.2-1.3); Blood Urea Nitrogen 12 mg/dl (9-20); Calcium 9.2 mg/dl (8.4-10.2); Carbon Dioxide 27 mmol/L (22.0-30.0); Chloride 101 mmol/L (98-107); Creatinine Clearance Estimated 134 mL/min (50-200); Estimated Glomerular Filt Rate 90 ml/min (>60); GFR (African American) 108 ML/MIN (>60); Glucose 84 mg/dl (74-100); Potassium 3.8 mmoL/L (3.5-5.1); Sodium 141 mmol/L (136-145); Total Protein,Serum 7.7 g/dl (6.3-8.2)
--- NOTE | 2022-09-27 22:13 | PC.NURSE ---
patient gone to RAD at this time.
[2022-09-27 22:24] VITALS: PULSE 71; PULSE 75
[2022-09-27 22:25] LABS: NT Pro Brain Natriuretic Pep. < 20.0 pg/mL (0-125)
--- NOTE | 2022-09-27 22:25 | PC.NURSE ---
patient back in room from [facility] at this time.
[2022-09-27 22:26] LABS: Troponin I < 0.01 ng/ml (0.00-0.034)
[2022-09-27 22:30] VITALS: BP 141/83; PULSE 84; RESP 16; O2SAT 98
--- NOTE | 2022-09-27 22:30 | HMH.EDSOB ---
Discharge Plan Disposition Patient Disposition: Home, Self-Care Prescriptions Prescriptions: New azithromycin [azithromycin] 250 mg tablet 250 mg PO DIRECTED Qty: 6 0RF Rx Instructions: Take two (2) tablets on day #1, then one (1) tablet day #2 thru #5 prednisone [prednisone] 20 mg tablet 20 mg PO BID Qty: 10 0RF Referrals Follow up/Referrals: Aniceto Elena MD [Primary Care Provider] - See instructions Clinical Impressions Clinical Impression: Asthma exacerbation, Bronchitis Instructions Patient Instructions: DI for Asthma -- Adult Discharge ED Provider: Ulices (ED)Aniceto Resp/SOB HPI General Chief Complaint: Shortness of Breath/Dyspnea Stated Complaint: SOA Time Seen by Provider: 09/27/22 21:50 Mode of Arrival: Ambulatory Source of Information: Patient, Spouse and Medical Record Limitations: No Limitations Description of Symptoms (Recalled from ER Triage Doc. 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 States that for the last few days he has been short of breath and feels like he has an increased work of breathing .Patient states that he has a history of asthma and used an inhaler but threw it away because he hadn't had any issues since last year so he didnt think he would need his inhaler. History of Present Illness pt with hx of asthma with acute exacerbation - no fever and does use tob MD Complaint: shortness of breath, cough and asthma attack Onset (ago): hour(s) Severity: moderate Consistency/Duration: intermittent Known history of: asthma Associated symptoms: denies other symptoms Related Data Home oxygen amount: none Previous Rx's Medication Instructions Recorded azithromycin 250 mg tablet 250 mg PO DIRECTED #6 tabs 09/27/22 prednisone 20 mg tablet 20 mg PO BID #10 tabs 09/27/22 Allergies Allergy/AdvReac Type Severity Reaction Status Date / Time brompheniramine Allergy Severe Anaphylaxis Verified 02/25/22 09:08 [From DIMETAPP COLD-ALLERGY (PE)] phenylephrine Allergy Severe Anaphylaxis Verified 02/25/22 09:08 [From DIMETAPP COLD-ALLERGY (PE)] Well's Criteria PE Score Clinical signs/symptoms of DVT: No PE is #1 diagnosis or equally likely: Yes Heart rate is > 100: Yes Immobile at least 3 days, or surgery in past 4 wks: No Previously, obj. diagnosed PE or DVT: No Hemoptysis: No Malignancy w/Rx within 6mo, or palliative: No PE Score: 4 Risk of Pulmonary Embolism by score: >3 pts=Hi Risk (78%) [facility] Disclaimer: The information contained in this section may have been updated after the patient was seen, as this information can be updated by other users. Medical History (Updated 09/27/22 @ 23:17 by Aniceto PIERCE)MD) Acne Allergies Anxiety Asthma Gallbladder disease Hemorrhoid History of COVID-19 History of gastroesophageal reflux (GERD) Hypertension Migraine Sinus headache Surgical History (Updated 02/25/22 @ 09:09 by ADALID Marti) History of appendectomy History of laparoscopic cholecystectomy Family History Grandmother Diabetes Hypertension Other Cancer Social History Smoking Status: Current every day smoker tobacco type: cigarettes packs per day: 1 years smoked: 14 second hand exposure: No alcohol intake: former substance use type: marijuana, crack/cocaine, heroin and methamphetamine current occupational status: employed Travel in the last 8 weeks: None number of children: 0 ROS Obtained: Yes All systems reviewed & no additional complaints except as documented Physical Exam General General appearance: alert Head Head exam: normocephalic Eye Eye exam: Present PERRL and EOMI ENT ENT exam: Present mucous membranes moist Neck Nec
[2022-09-27 23:16] VITALS: BP 124/80; PULSE 83; RESP 13; TEMP 36.6; O2SAT 97
== END 2022-09-27 23:19 | disposition home or self-care (01) ==
PROVIDERS: Emergency Provider Emergency Medicine; PCP Emergency Medicine
DX: J45.901 Unspecified asthma with (acute) exacerbation (principal); R06.02 Shortness of breath; F41.9 Anxiety disorder, unspecified; I10 Essential (primary) hypertension; F17.210 Nicotine dependence, cigarettes, uncomplicated
CPT/HCPCS: 71046; 71275; 80053; 83880; 84484; 85025; 93005; 96361; 96374; 99285; Q9967

== ENCOUNTER 2023-01-03 08:43 | Emergency (ER) | payer SELFPAY ==
[2023-01-03 09:55] VITALS: BP 124/83; PULSE 64; RESP 18; TEMP 36.8; O2SAT 99; BMI 33.0
--- NOTE | 2023-01-03 10:14 | EXP.UTC ---
Discharge Plan Disposition Patient Disposition: Home, Self-Care Condition: Good Prescriptions Prescriptions: New azithromycin [Zithromax Z-Blayne] 250 mg tablet See Rx Instructions .ROUTE .COMPLEX 5 Days Qty: 6 0RF Rx Instructions: For 250 mg dose pack: take 500 mg today (day 1), then 250 mg for 4 days (days 2-5) prednisone [prednisone] 20 mg tablet 20 mg PO BID 5 Days Qty: 10 0RF ondansetron 4 mg tablet,disintegrating 4 mg PO Q8H PRN (Reason: nausea and vomiting) Qty: 10 0RF Referrals Follow up/Referrals: Aniceto Elena MD [Primary Care Provider] - See instructions Activity Restrictions/Add. Instructions Additional Instructions/Restrictions: *Monitor Temp, Over the counter Motrin or Tylenol as directed/as needed Tylenol every 4 hours and Motrin every 6 hours (as long as your family doctor has told you that you can take it) for fever or pain. and straight to ER if unable to lower temp less than 101.0 after medication given *Warm salt water gargles may help to soothe the throat *Throat Lozenges? *Warm fluids like tea with honey may help to soothe the throat? *Sleep elevated *Humidifier/Vaporizer *Your throat swab was sent for culture. Those results are typically sent to your primary care. Be sure to follow up in 2-3 days with your family doctor/primary care physician if no improvement so they can review those result and treat if necessary. If you don?t have a primary care doctor, I recommend you get one but in the mean time, you will have to return to a walk in clinic Follow up IMMEDIATELY for new or worsening symptoms or no Noticeable improvement over the next 48-72 hours. 911 for difficulty breathing or swallowing You were tested for today for Upper Respiratory Panel with COVID19 your test result should be back in the next 24, you may Check your Results on the [facility] [employer] [facility] Portal Clinical Impressions Clinical Impression: Sinusitis Qualifiers: Sinusitis location: unspecified location Chronicity: unspecified Qualified Code(s): J32.9 - Chronic sinusitis, unspecified Stand Alone Forms Stand Alone Forms: Work/School Release Instructions Patient Instructions: DI for Sinusitis, Nausea and Vomiting-Adult Discharge ED Provider: Courtney Mendenhall [facility] [place] HPI General Stated complaint: sore throat, vomiting Mode of Arrival: Ambulatory Source of Information: Patient Limitations: No Limitations Time Seen by Provider: 01/03/23 10:14 Description of Symptoms (Recalled from Triage Doc. by RN): PATIENT C/O SORE THROAT, FEVER, VOMITING, DIARRHEA, AND HEADACHE X 4 DAYS HEENT Symptoms (Recalled from RN notes): Yes Resp Symptoms (Recalled from RN notes): No Skin Symptoms (Recalled from RN notes): No MS Symptoms (Recalled from RN notes): No Functional Status (Recalled from RN notes): WNL History of Present Illness Provider Complaint: Patient states that he hasnt felt well for about 4 days States that he has been having sore throat, fever, vomiting, diarrhea, headache and feeling achy State that today he wasnt feeling any better so he came in to get checked worried he may have strep throat Related Data Previous Rx's Medication Instructions Recorded azithromycin 250 mg tablet See Rx Instructions PO .COMPLEX 5 01/03/23 (Zithromax Z-Blayne) days #6 tabs ondansetron 4 mg disintegrating 4 mg PO Q8H PRN nausea and 01/03/23 tablet vomiting #10 tabs prednisone 20 mg tablet 20 mg PO BID 5 days #10 tabs 01/03/23 Allergies Allergy/AdvReac Type Severity Reaction Status Date / Time brompheniramine Allergy Severe Anaphylaxis Verified 02/25/22 09:08 [From DIMETAPP COLD-ALLERGY (PE)] phenylephrine Allergy Severe Anaphylaxis Verified 02/25/22 09:08 [From DIMETAPP COLD-ALLERGY (PE)] Worker's Comp Is this a Worker's Comp case?: No [facility] Disclaimer: The information contained in this section may have been updated after the patient was seen, as thi
[2023-01-03 10:22] LABS: UTC Influenza A Antigen Negative (Negative); UTC Influenza B Antigen Negative (Negative); UTC Strep Screen (Rapid) Negative (Negative)
[2023-01-03 10:30] VITALS: BP 124/83; PULSE 64; RESP 18; TEMP 36.8; O2SAT 99
== END 2023-01-03 10:33 | disposition home or self-care (01) ==
PROVIDERS: Emergency Provider Nurse Practitioner; PCP Emergency Medicine
DX: J01.90 Acute sinusitis, unspecified (principal); R11.2 Nausea with vomiting, unspecified; R50.9 Fever, unspecified; F17.210 Nicotine dependence, cigarettes, uncomplicated; I10 Essential (primary) hypertension; J45.909 Unspecified asthma, uncomplicated; F41.9 Anxiety disorder, unspecified
CPT/HCPCS: 87804; 87880; 99212; 99214; G0463

== ENCOUNTER 2023-04-15 11:04 | Emergency (ER) | payer BC, SELFPAY ==
[2023-04-15 11:30] VITALS: BP 144/90; PULSE 81; RESP 19; TEMP 36.8; O2SAT 98; BMI 28.1
--- NOTE | 2023-04-15 11:36 | XR_ITS ---
FINAL REPORT CLINICAL HISTORY: INJURY COMPARISON: 05/29/2019 FINDINGS: Right shoulder Three views were obtained. There is no acute fracture or dislocation. The joint spaces appear normal. No soft tissue abnormality is identified. IMPRESSION: No acute process. Reviewed, Interpreted and Dictated by Herbie De La Paz MD Transcribed by Andreina Roy Authenticated and [facility]
--- NOTE | 2023-04-15 12:12 | EXP.UTC ---
Discharge Plan Disposition Patient Disposition: Home, Self-Care Condition: Good Prescriptions Prescriptions: New ibuprofen 600 mg tablet 600 mg PO Q6HP PRN (Reason: Moderate Pain) Qty: 20 0RF methocarbamol 500 mg tablet 500 mg PO TID PRN (Reason: muscle spasm) Qty: 12 0RF Referrals Follow up/Referrals: Provider,Referral, MD [Primary Care Provider] - See instructions Activity Restrictions/Add. Instructions Additional Instructions/Restrictions: *Ibuprofen carmella 6 hours with meal as needed for pain/inflammation *Not additional anti-inflammatory like motrin, aleve, advil with the above amount of ibuprofen. You can still take Tylenol every 4 hours as needed if you need something else for pain *Ice 20 minutes every 2 hours for the first 48 hours after the initial injury followed by moist heat every 20 minutes 3-4 times a day to affected area *Muscle relaxer every 8 hours as needed for muscle spasms but remember, it WILL cause drowsiness You cannot take it and drive, operate machinery or care for small children. *Keep this area active, no movement leads to more stiffness, However take it easy and avoid heavy lifting pushing or pulling *Follow up with you family doctor if no improvement for further treatment Clinical Impressions Clinical Impression: Muscle strain Instructions Patient Instructions: DI for Muscle Spasm Discharge ED Provider: Courtney Mendenhall [facility] General Stated complaint: right shoulder pain from previous injury abt 2 wks Mode of Arrival: Ambulatory Source of Information: Patient Limitations: No Limitations Time Seen by Provider: 04/15/23 11:50 Description of Symptoms (Recalled from Triage Doc. 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 shoulder States that he feels like he may have pulled a muscle or something States that area feels tight and spasms up at times so today when he was still having pain he came in to get checked Related Data Previous Rx's Medication Instructions Recorded ibuprofen 600 mg tablet 600 mg PO Q6HP PRN Moderate Pain 12/22/23 #20 tabs methocarbamol 500 mg tablet 500 mg PO TID PRN muscle spasm #12 04/15/23 tabs Allergies Allergy/AdvReac Type Severity Reaction Status Date / Time brompheniramine Allergy Severe Anaphylaxis Verified 02/25/22 09:08 [From DIMETAPP COLD-ALLERGY (PE)] phenylephrine Allergy Severe Anaphylaxis Verified 02/25/22 09:08 [From DIMETAPP COLD-ALLERGY (PE)] Worker's Comp Is this a Worker's Comp case?: No [facility] Disclaimer: The information contained in this section may have been updated after the patient was seen, as this information can be updated by other users. Medical History (Updated 04/15/23 @ 13:09 by Courtney Mendenhall APRN) Acne Allergies Anxiety Asthma Gallbladder disease Hemorrhoid History of COVID-19 History of gastroesophageal reflux (GERD) Hypertension Migraine Sinus headache Surgical History (Updated 02/25/22 @ 09:09 by ADALID Marti) History of appendectomy History of laparoscopic cholecystectomy Family History Grandmother Diabetes Hypertension Other Cancer Social History Smoking Status: Current every day smoker tobacco type: cigarettes packs per day: 1 years smoked: 14 second hand exposure: No alcohol intake: former substance use type: marijuana, crack/cocaine, heroin and methamphetamine current occupational status:
[2023-04-15 13:15] VITALS: BP 144/90; PULSE 81; RESP 19; TEMP 36.8; O2SAT 98
== END 2023-04-15 13:18 | disposition home or self-care (01) ==
PROVIDERS: Emergency Provider Nurse Practitioner
DX: S46.911A Strain of unspecified muscle, fascia and tendon at shoulder and upper arm level, right arm, initial encounter (principal); M25.511 Pain in right shoulder; M62.838 Other muscle spasm; F17.210 Nicotine dependence, cigarettes, uncomplicated; J45.909 Unspecified asthma, uncomplicated; X50.0XXA Overexertion from strenuous movement or load, initial encounter
CPT/HCPCS: 73030; 99212; 99214; G0463

== ENCOUNTER 2023-07-30 18:24 | Emergency (ER) | payer BC, SELFPAY ==
[2023-07-30 18:35] VITALS: BP 138/85; PULSE 74; RESP 22; TEMP 37.1; O2SAT 98; BMI 29.0
--- NOTE | 2023-07-30 18:41 | ED_ITS ---
Discharge Plan Disposition Patient Disposition: Home, Self-Care Condition: Good Prescriptions Prescriptions: New amoxicillin 875 mg tablet 875 mg PO Q12H Qty: 20 0RF methylprednisolone 4 mg Tablets,Dose Pack 4 mg PO DIRECTED 6 Days Qty: 21 0RF Rx Instructions: Take 1 pack as directed for 6 days Referrals Follow up/Referrals: Michael Shah DO [Primary Care Provider] - See instructions Activity Restrictions/Add. Instructions Additional Instructions/Restrictions: Drink plenty of fluids. Take tylenol or ibuprofen for pain or fever. Take the medications as directed. Follow up with your regular doctor. GO TO THE ER FOR ANY WORSENING SYMPTOMS Clinical Impressions Clinical Impression: Acute right otitis media Instructions Patient Instructions: Middle Ear Infection, Methylprednisolone, Amoxicillin Discharge ED Provider: Amish Oliver [facility] General Stated complaint: RT ear pain Time Seen by Provider: 07/30/23 18:41 History of Present Illness Provider Complaint: He states that he has had right ear pain for the past 2 weeks. He is also having sinus congestion and a scratchy sore throat. Related Data Previous Rx's Medication Instructions Recorded amoxicillin 875 mg tablet 875 mg PO Q12H #20 tabs 07/30/23 methylprednisolone 4 mg tablets in 4 mg PO DIRECTED 6 days #21 tabs 07/30/23 a dose pack Allergies Allergy/AdvReac Type Severity Reaction Status Date / Time brompheniramine Allergy Severe Anaphylaxis Verified 04/27/23 14:00 [From DIMETAPP COLD-ALLERGY (PE)] phenylephrine Allergy Severe Anaphylaxis Verified 04/27/23 14:00 [From DIMETAPP COLD-ALLERGY (PE)] [facility] Disclaimer: The information contained in this section may have been updated after the [facility] ent was seen, as this information can be updated by other users. Medical History (Updated 07/30/23 @ 19:01 by Amish Oliver APRN) Muscle strain Bronchitis Asthma exacerbation Anxiety History of COVID-19 Asthma Sinus headache Migraine Acne History of gastroesophageal reflux (GERD) Hemorrhoid Allergies Hypertension Gallbladder disease Otitis media Rotator cuff tendinitis Dysfunction of left eustachian tube Pharyngitis Viral upper respiratory illness Surgical History History of laparoscopic cholecystectomy History of appendectomy Family History Grandmother Diabetes Hypertension Other Cancer Social History Smoking Status: Current every day smoker tobacco type: cigarettes packs per day: 1 years smoked: 14 second hand exposure: No alcohol intake: former substance use type: marijuana, crack/cocaine, heroin and methamphetamine current occupational status: employed Travel in the last 8 weeks: None number of children: 0 ROS Obtained: Yes All systems reviewed & no additional complaints except as documented Constitutional Constitutional: Denies chills, Reports fever(s) and Reports poor appetite Eyes Eyes: Denies eye discharge ENT Ears, Nose, Mouth, and Throat: Denies ear discharge, Reports otalgia, Denies hearing loss, Denies sinus pain and Reports sore throat Cardiovascular Cardiovascular: Denies chest pain and Denies dyspnea Respiratory Respiratory: Denies chest congestion, Reports cough and Denies dyspnea Gastrointestinal Gastrointestingal: Denies abdominal pain, diarrhea, nausea or vomiting Musculoskeletal Musculoskeletal: Denies arthralgias Integumentary/Breasts Skin/Breast: Denies rash Physical Exam General General appearance: alert and in no apparent distress Head Head exam: atraumatic, normocephalic and normal inspection Eye Eye exam: Present normal appearance; Absent PERRL or EOMI ENT ENT exam: Present mucous membranes moist and normal external ear exam Expanded ENT Exam TM/Canal exam: Bilateral TM: erythema, bulging and effusion Nose exam: Absent sinus tenderness Nasal speculum exam: Bilateral: normal Mouth exam: Present normal external inspection and other; Absent drooling Teeth exam: Present normal inspection Throat exam: Present tonsillar erythema and tonsillomegaly Neck Neck exam: Present normal inspection, full ROM and trachea midline; Absent tenderness, meningismus or lymphadenopathy Chest Chest inspection: Present normal inspection and symmetric chest wall rise; Absent tenderness Respiratory Respiratory exam: Present normal lung sounds bilaterally; Absent respiratory distress, wheezes or stridor Cardiovascular Cardiovascular exam: Present regular rate, normal rhythm and normal heart sounds; Absent tachycardia or irregular rhythm Abdominal Exam Abdominal exam: Present soft and normal bowel sounds; Absent distention, tenderness, guarding, rebound or rigidity Extremities Exam Extremities exam: Present normal inspection and normal capillary refill; Absent tenderness, joint swelling or calf tenderness Back Exam Back exam: Present normal inspection and full ROM; Absent tenderness, CVA tenderness (R) or CVA tenderness (L) Neurological Exam Neurological exam: Present alert, oriented X3, CN II-XII intact, normal gait and reflexes normal; Absent motor sensory deficit Psychiatric Psychiatric exam: Present normal affect and normal mood Skin Skin exam: Present warm, dry, intact and normal color Lymphatic Lymphatic Findings: no adenopathy Medical Decision Making Medical Records Medical records reviewed: No I reviewed the patient's medical records. Jameel Inquiry Pt receiving controlled substance: No
[2023-07-30 19:18] VITALS: BP 138/85; PULSE 74; RESP 22; TEMP 37.1; O2SAT 98
== END 2023-07-30 19:17 | disposition home or self-care (01) ==
PROVIDERS: Emergency Provider Nurse Practitioner Family; PCP Internal Medicine
DX: H66.91 Otitis media, unspecified, right ear (principal); R07.0 Pain in throat; R09.81 Nasal congestion; F17.210 Nicotine dependence, cigarettes, uncomplicated
CPT/HCPCS: 99212; 99214; G0463